=== PATIENT | female | born 1950 | race Caucasian/White ===

== ENCOUNTER → 2016-12-20 | Day surgery (SDC) | payer OTHER ==
[~2016-12-20] MED LIST: BUPIVACAINE HCL PF 0.75% 30 ML VIAL ONE; LACTATED RINGER'S 1000 ML INJ 1,000 ML ONE; LEVA750T9 PO; LIDOCAINE 1.5%/EPINEPHrine 1:200,000 PF SOLN 30 ML AMP ONE; MIDAZOLAM HCL 5 MG/ML VIAL (1 ML) ONE; ONDANSETRON HCL 4 MG/2 ML VIAL IV PUSH ONE; PROPOFOL 200 MG/20 ML AMP IV ONE; SODIUM CHLORIDE 0.9% 100 ML MINIBAG IV ONE; SODIUM CHLORIDE 0.9% 250 ML ADDBAG IV ONE; VANCOMYCIN HCL 1000 MG VIAL ONE; XANAX PO; ceFAZolin INJ 1,000 MG VIAL ONE
--- NOTE | 2016-12-20 23:21 | MP ---
cc: MISAEL BUCKNER MD DATE OF SURGERY 12/20/16 PREOPERATIVE DIAGNOSIS Right distal radius fracture intra-articular three-part POSTOPERATIVE DIAGNOSIS Right distal radius fracture intra-articular three-part SURGEON Kathleen Buckner MD PHARMACY TECHNICIAN JOYCE Veloz The surgical procedure was assisted by my Advanced Registered Nurse Practitioner. My LEAD QUALITY CONTROL TECHNICIAN presence was necessary throughout this case for the manipulation and positioning of the surgical extremity. My LEAD QUALITY CONTROL TECHNICIAN was assisting me throughout the duration of this procedure. The skill set of an Advance Registered Nurse Practitioner was medically necessary to complete this procedure. During the surgical case, the surgical garment assembly supervisor was working at the back table and the Advance Registered Nurse Practitioner was directly assisting me. PROCEDURE Right distal radius fracture open reduction and internal fixation of three-part interarticular fracture. ESTIMATED BLOOD LOSS Minimal ANESTHESIA General anesthesia TOURNIQUET TIME 20 minutes at 250 mmHg pressure. PROCEDURE IN DETAIL The patient received intravenous Ancef and vancomycin. She had regional anesthesia performed in the holding area. She was brought back to the operative theater. General anesthesia was administered. Right upper extremity was prepped and draped in usual sterile fashion. She had several abrasions with no signs of infection. These abrasions were away from the incision site. After standard prepping and draping, we exsanguinated the arm, raised the tourniquet. Volar incision was made over the flexor carpi radialis. We then dissected through to the sub sheath. We reflected the pronator quadratus, identified the fracture which had already starting healing in a displaced angulated position. There was some early granulation tissue. This was resected. We then anatomically reduced the fracture. We started by reducing the ulnar styloid fragment and then later the radial styloid fragment. We applied a Synthes sliding pre-contour locking plate. We slid it to the appropriate position. We then secured the plate with a nonlocking screw and then slid it to the appropriate position on the distal radius. We first secured the distal radius on the ulnar side. We made sure we had no endotracheal penetration. We then further sequentially fixated the fracture with multiple locking screws after anatomically reducing the radial portion as well. The articular surface was anatomic. We verified on fluoroscopy with AP and radial styloid lateral and 10 degrees [id number] used. There was no interarticular penetration. We secured the plate proximally with two locking screws. We took final fluoroscopic imaging. Tourniquet was released. Hemostasis was achieved. The wound was irrigated. We closed the skin with 2-0 Vicryl followed by 3-0 nylon. Postoperative plan is delayed range of motion. She was placed into a volar splint. MD BIBIANA Greenfield/ /4:31 PM /11:10 PM MTDD
== END | disposition home or self-care (01) ==
LOC: ESDC 13:05
PROVIDERS: ATTEND Orthopaedic Surgery
DX: S52.571A Other intraarticular fracture of lower end of right radius, initial encounter for closed fracture (principal)
CPT/HCPCS: 01830; 25609; 73110; 76000; C1713; J0690; J2250; J2405; J3010; J3370; J7120

== ENCOUNTER 2017-09-07 16:33 | Observation (INO) | payer OTHER ==
[~2017-09-07] VITALS: Ht 154.9 cm; Wt 70.0 kg
[~2017-09-07 16:33] MED LIST changes: -BUPIVACAINE HCL PF 0.75% 30 ML VIAL ONE; -LACTATED RINGER'S 1000 ML INJ 1,000 ML ONE; -LIDOCAINE 1.5%/EPINEPHrine 1:200,000 PF SOLN 30 ML AMP ONE; -MIDAZOLAM HCL 5 MG/ML VIAL (1 ML) ONE; -ONDANSETRON HCL 4 MG/2 ML VIAL IV PUSH ONE; -PROPOFOL 200 MG/20 ML AMP IV ONE; -SODIUM CHLORIDE 0.9% 100 ML MINIBAG IV ONE; -SODIUM CHLORIDE 0.9% 250 ML ADDBAG IV ONE; -VANCOMYCIN HCL 1000 MG VIAL ONE; -ceFAZolin INJ 1,000 MG VIAL ONE
[2017-09-07 16:46] VITALS: BP 133/82; PULSE 73; RESP 16; TEMP 98.3; O2SAT 95
[2017-09-07 16:56] VITALS: O2SAT 97
--- NOTE | 2017-09-07 17:11 | PD ---
HPI Chief Complaint: General Weakness Time Seen by Provider: 16:47 Travel History International Travel<30 days: No Contact w/Intl Traveler<30days: No Traveled to known affect area: No History of Present Illness HPI 66 y/o female presents with generalized weakness that led to a fall yesterday. She was feeling better and ambulatory to this morning when she had difficulty walking again. She states she is having significant pain to her right knee since she fell. She states she did hit her head but she did not black out. She denies any other concurrent complaints. Quality is feels like she has no strength. Severity is progressive. She denies specific modifying factors. Duration since yesterday. She presents by ambulance who helps supplement history. Her vitals were stable in route. [facility] Past Medical History Asthma: Yes Cardiac Catheterization: Yes (STATES WAS NEGATIVE-NO INTERVENTIONS NEEDED) Diabetes: No Diminished Hearing: No Menopausal: Yes : 3 Para: 2 : 1 Past Surgical History Appendectomy: Yes Hysterectomy: Yes (PARTIAL) Social History Alcohol Use: Yes (Occasional) Tobacco Use: Yes (ppd) Substance Use: Yes (Occ marijuana) Allergies-Medications (Allergen,Severity, Reaction): Coded Allergies: penicillin G (Unverified Allergy, Unknown, 01/17/17) Reported Meds & Prescriptions Reported Meds & Active Scripts Active Reported Mobic (Meloxicam) 7.5 Mg Tab 7.5 Mg PO BID Propranolol (Propranolol HCl) 20 Mg Tab 20 Mg PO Q8HR Xanax (Alprazolam) 1 Mg Tab 1 Mg PO DAILY PRN Review of Systems Except as stated in HPI: all other systems reviewed are Neg Physical Exam Narrative GENERAL: 66-year-old female in no apparent distress SKIN: Focused skin assessment warm/dry. HEAD: Atraumatic. Normocephalic. EYES: Pupils equal and round. No scleral icterus. No injection or drainage. ENT: No nasal bleeding or discharge. Mucous membranes pink and moist. NECK: Trachea midline. CARDIOVASCULAR: Regular rate and rhythm. RESPIRATORY: No accessory muscle use. Clear to auscultation. Breath sounds equal bilaterally. GASTROINTESTINAL: Abdomen soft, non-tender, nondistended. MUSCULOSKELETAL: No obvious deformities. No clubbing. No cyanosis. No edema. Pain with palpation of right knee, no pain with other joints , neurovascularly intact, no lacerations over, compartments soft. NEUROLOGICAL: Awake and alert. No obvious cranial nerve deficits. Motor grossly within normal limits. Normal speech. Data Data Last Documented VS Vital Signs Date Time Temp Pulse Resp B/P (MAP) Pulse Ox O2 Delivery O2 Flow Rate FiO2 09/07/17 16:56 97 Room Air 09/07/17 16:46 98.3 73 16 133/82 (99) Orders Orders Magnesium (Mg) (09/07/17 16:47) Phosphorus (Po4) (09/07/17 16:47) Complete Blood Count With Diff (09/07/17 16:47) Comprehensive Metabolic Panel (09/07/17 16:47) Creatine Kinase (Cpk) (09/07/17 16:47) Urinalysis - C+S If Indicated (09/07/17 16:47) Act Partial Throm Time (Ptt) (09/07/17 16:47) Prothrombin Time / Inr (Pt) (09/07/17 16:47) Ct Brain W/O Iv Contrast(Rout) (09/07/17 ) Chest, Single Ap (09/07/17 ) Electrocardiogram (09/07/17 ) Iv Access Insert/Monitor (09/07/17 16:47) Ecg Monitoring (09/07/17 16:47) Oximetry (09/07/17 16:47) Knee, Complete (4vws) (09/07/17 ) ^ Knee Immobilizer (09/07/17 17:35) Morphine Inj (Morphine Inj) (09/07/17 18:00) Ondansetron Inj (Zofran Inj) (09/07/17 18:00) Place In Observation (09/07/17 ) Vital Signs (Adult) Q4H (09/07/17 18:24) Activity Oob With Assistance (09/07/17 18:24) Manager Policy / Telemetry .CONTINUOUS (09/07/17 18:24) Diet Heart Healthy (09/07/17 Dinner) Sodium Chloride 0.9% Flush (Ns Flush) (09/07/17 18:30) Sodium Chloride 0.9% Flush (Ns Flush) (09/07/17 21:00) Pt Request For Service (09/07/17 18:24) Case Management Consult (09/07/17 18:24) Naloxone Inj (Narcan Inj) (09/07/17 18:30) Morphine Inj (Morphine Inj) (09/07/17 18:30) Admit Order (Ed Use Only) (09/07/17 18:34) Labs Laboratory Tests Test 09/07/17 16:50 09/07/17 17:40 White Blood Count 10.2 TH/MM3 Red Blood Count 4.62 MIL/MM3 Hemoglobin 15.0 GM/DL Hematocrit 43.1 % Mean Corpuscular Volume 93.2 FL Mean Corpuscular Hemoglobin 32.4 PG Mean Corpuscular Hemoglobin Concent 34.7 % Red Cell Distribution Width 14.8 % Platelet Count 359 TH/MM3 Mean Platelet Volume 7.3 FL Neutrophils (%) (Auto) 73.8 % Lymphocytes (%) (Auto) 17.4 % Monocytes (%) (Auto) 7.1 % Eosinophils (%) (Auto) 1.5 % Basophils (%) (Auto) 0.2 % Neutrophils # (Auto) 7.5 TH/MM3 Lymphocytes # (Auto) 1.8 TH/MM3 Monocytes # (Auto) 0.7 TH/MM3 Eosinophils # (Auto) 0.2 TH/MM3 Basophils # (Auto) 0.0 TH/MM3 CBC Comment DIFF FINAL Differential Comment Prothrombin Time 9.9 SEC Prothromb Time International Ratio 1.0 RATIO Activated Partial Thromboplast Time 26.2 SEC Blood Urea Nitrogen 16 MG/DL Creatinine 0.67 MG/DL Random Glucose 80 MG/DL Total Protein 7.1 GM/DL Albumin 3.7 GM/DL Calcium Level 9.1 MG/DL Phosphorus Level 3.4 MG/DL Magnesium Level 2.1 MG/DL Alkaline Phosphatase 59 U/L Aspartate Amino Transf (AST/SGOT) 17 U/L Alanine Aminotransferase (ALT/SGPT) 18 U/L Total Bilirubin 0.5 MG/DL Sodium Level 139 MEQ/L Potassium Level 3.9 MEQ/L Chloride Level 105 MEQ/L Carbon Dioxide Level 26.2 MEQ/L Anion Gap 8 MEQ/L Estimat Glomerular Filtration Rate 88 ML/MIN Total Creatine Kinase 50 U/L Urine Color YELLOW Urine Turbidity CLEAR Urine pH 6.0 Urine Specific [place] 1.012 Urine Protein NEG mg/dL Urine Glucose (UA) NEG mg/dL Urine Ketones NEG mg/dL Urine Occult Blood NEG Urine Nitrite NEG Urine Bilirubin NEG Urine Urobilinogen LESS THAN 2.0 MG/DL Urine Leukocyte Esterase NEG Urine RBC 1 /hpf Urine WBC 1 /hpf Urine Squamous Epithelial Cells 2 /hpf Microscopic Urinalysis Comment CULT NOT INDICATED MDM Medical Decision Making Medical Screen Exam Complete: Yes Emergency Medical Condition: Yes Medical Record Reviewed: Yes (Past history confirmed) Interpretation(s) CBC & BMP Diagram 09/07/17 16:50 Total Protein 7.1, Albumin 3.7, Calcium Level 9.1, Phosphorus Level 3.4, Magnesium Level 2.1, Alkaline Phosphatase 59, Aspartate Amino Transf (AST/SGOT) 17, Alanine Aminotransferase (ALT/SGPT) 18, Total Bilirubin 0.5 Last 24 hours Impressions Knee X-Ray 09/07/17 0000 Signed Impressions: Service Date/Time: September 17:01 - CONCLUSION: Mildly comminuted fracture of the patella. Del Martinez MD Head CT 09/07/17 0000 Signed Impressions: Service Date/Time: September 17:50 - CONCLUSION: 1. Diffuse decreased attenuation in the supratentorial white matter suggesting ischemic demyelination. 2. No evidence of mass effect, edema, or acute hemorrhage. Del Martinez MD Chest X-Ray 09/07/17 0000 Signed Impressions: Service Date/Time: September 16:59 - CONCLUSION: Small focal opacity in the right midlung. Recommend followup scans. Del Martinez MD Differential Diagnosis Fracture, anemia, UTI, strain, bleed Narrative Course We will check blood work, urinalysis, imaging and reevaluate Patient with right patella fracture. Patient given morphine and knee immobilizer placed. Patient still having difficulty ambulating. Lives at home by herself. Agrees to observation overnight to help coordinate care and control pain Physician Communication Physician Communication dr nagel states can follow outpatient dr dye agrees to admit Diagnosis Primary Impression: Patellar fracture Qualified Codes: S82.001A - Unspecified fracture of right patella, initial encounter for closed fracture Additional Impression: Weakness generalized Admitting Information Admitting Physician Requests: Observation Keli James MD Sep 07, 2017 17:11
--- NOTE | 2017-09-07 17:17 | RADRPT ---
EXAM DATE/TIME: 09/07/2017 16:59 [facility] COMPARISON: No previous studies available for comparison. INDICATIONS : Pain post fall. MEDICAL HISTORY : None. SURGICAL HISTORY : None. ENCOUNTER: Initial ACUITY: 1 day PAIN SCORE: 10/10 LOCATION: Bilateral chest FINDINGS: There is a focal ill-defined opacity in the right midlung which measures 1.3 cm. This is located adj acent to the anterior right 4th rib. The remainder of the lungs are clear. Both hemidiaphragms are well delineated. No evidence of pneumothorax. CONCLUSION: Small focal opacity in the right midlung. Recommend followup scans. Del Martinez MD on September 07, 2017 at 17:13 Board Certified Radiologist. This report was verified electronically.
--- NOTE | 2017-09-07 17:28 | RADRPT ---
EXAM DATE/TIME: 09/07/2017 17:01 [facility] COMPARISON: No previous studies available for comparison. INDICATIONS : Pain post fall. MEDICAL HISTORY : None. SURGICAL HISTORY : None. ENCOUNTER: Initial ACUITY: 1 day PAIN SCORE: 10/10 LOCATION: Right Knee. FINDINGS: There is a mildly comminuted fracture of the patella without significant displacement of the fracture fragments. The distal femur and proximal tibia are intact. There is mild distention of the suprapa tellar soft tissues. Vascular calcification in the posterior thigh. CONCLUSION: Mildly comminuted fracture of the patella. Del Martinez MD on September 07, 2017 at 17:25 Board Certified Radiologist. This report was verified electronically.
[2017-09-07 17:32] LABS: AUTOMATED NEUTROPHIL # 7.5 TH/MM3 (1.8-7.7); BASOPHIL % 0.2 % (0.0-2.0); EOSINOPHIL # 0.2 TH/MM3 (0-0.4); EOSINOPHIL % 1.5 % (0.0-4.0); HEMATOCRIT 43.1 % (35.0-46.0); LYMPH % 17.4 % (9.0-44.0); LYMPHOCYTE # 1.8 TH/MM3 (1.0-4.8); MEAN CELL VOLUME 93.2 FL (80.0-100.0); MEAN CORPUSCULAR HEMOGLOBIN 32.4 PG (27.0-34.0); MEAN CORPUSCULAR HGB CONC 34.7 % (32.0-36.0); MEAN PLATELET VOLUME 7.3 FL (7.0-11.0); MONO % 7.1 % (0.0-8.0); MONOCYTE # 0.7 TH/MM3 (0-0.9); NEUT % 73.8 % (16.0-70.0); PLATELET COUNT 359 TH/MM3 (150-450); RED BLOOD COUNT 4.62 MIL/MM3 (4.00-5.30); RED CELL DISTRIBUTION WIDTH 14.8 % (11.6-17.2); WHITE BLOOD COUNT 10.2 TH/MM3 (4.0-11.0)
[2017-09-07 17:43] LABS: PROTHROMBIN TIME - PATIENT 9.9 SEC (9.8-11.6)
[2017-09-07 17:54] LABS: ALBUMIN 3.7 GM/DL (3.4-5.0); ALT (GPT) 18 U/L (10-53); AST (GOT) 17 U/L (15-37); BICARBONATE 26.2 MEQ/L (21.0-32.0); BLOOD UREA NITROGEN 16 MG/DL (7-18); CALCIUM 9.1 MG/DL (8.5-10.1); CHLORIDE 105 MEQ/L (98-107); CREATININE 0.67 MG/DL (0.50-1.00); GLOMERULAR FILTRATION RATE 88 ML/MIN (>89); GLUCOSE,RANDOM 80 MG/DL (74-106); MAGNESIUM 2.1 MG/DL (1.5-2.5); PHOSPHORUS 3.4 MG/DL (2.5-4.9); SODIUM (NA) 139 MEQ/L (136-145)
[2017-09-07 17:57] LABS: ALKALINE PHOSPHATASE 59 U/L (45-117); TOTAL BILIRUBIN ADULT 0.5 MG/DL (0.2-1.0); TOTAL PROTEIN 7.1 GM/DL (6.4-8.2)
[2017-09-07] MEDS ORDERED: ONDANSETRON HCL 4 MG/2 ML VIAL IV PUSH ONE (18:00)
[2017-09-07] MEDS ORDERED: MORPHINE SULFATE 4 MG/ML INJ IV PUSH ONE (18:00)
--- NOTE | 2017-09-07 18:05 | RADRPT ---
EXAM DATE/TIME: 09/07/2017 17:50 [facility] COMPARISON: No previous studies available for comparison. INDICATIONS : Patient complains of weakness,unsteady gait. RADIATION DOSE: 56.35 CTDIvol (mGy) MEDICAL HISTORY : None SURGICAL HISTORY : Appendectomy. Hysterectomy. ENCOUNTER: Initial ACUITY: 1 day PAIN SCALE: 0/10 LOCATION: cranial TECHNIQUE: Multiple contiguous axial images were obtained of the head. Using automated exposure control and adj ustment of the mA and/or kV according to patient size, radiation dose was kept as low as reasonably a chievable to obtain optimal diagnostic quality images. DICOM format image data is available electro nically for review and comparison. FINDINGS: CEREBRUM: The ventricles are mildly prominent. There is scattered areas of decreased attenuation in the suprat entorial white matter, symmetric between left and right side suggesting ischemic demyelination. No e vidence of midline shift, mass lesion, hemorrhage or acute infarction. No extra-axial fluid collecti ons are seen. POSTERIOR FOSSA: The cerebellum and brainstem are intact. The 4th ventricle is midline. The cerebellopontine angle i s unremarkable. EXTRACRANIAL: The visualized portion of the orbits is intact. SKULL: The calvaria is intact. No evidence of skull fracture. CONCLUSION: 1. Diffuse decreased attenuation in the supratentorial white matter suggesting ischemic demyelination . 2. No evidence of mass effect, edema, or acute hemorrhage. Del Martinez MD on September 07, 2017 at 18:02 Board Certified Radiologist. This report was verified electronically.
[2017-09-07] MEDS ORDERED: SODIUM CHLORIDE 0.9% FLUSH 10 ML FLUSH IV FLUSH PRN (18:30)
[2017-09-07] MEDS ORDERED: NALOXONE HCL 0.4 MG/ML AMP IV PUSH PRN (18:30)
[2017-09-07 18:32] LABS: BILIRUBIN, URINE NEG (NEG); BLOOD, URINE NEG (NEG); GLUCOSE,URINE NEG (NEG); KETONE, URINE NEG (NEG); NITRITE,URINE NEG (NEG); SQUAMOUS EPITHELIAL CELL URINE 2 /hpf (0-5); URINE COLOR YELLOW (YELLW/STRAW); URINE LEUKOCYTE ESTERASE NEG (NEG)
[2017-09-07] MEDS ORDERED: PROP20TA3 PO (18:32)
[2017-09-07] MEDS ORDERED: MOBI7.5T PO (18:32)
[2017-09-07] MEDS ORDERED: XANA1TAB2 PO (18:32)
[2017-09-07] MEDS: SODIUM CHLORIDE 0.9% FLUSH 10 ML FLUSH IV FLUSH SCH (21:00)
[2017-09-07 21:27] VITALS: BP 135/63; PULSE 74; RESP 17; TEMP 98.3; O2SAT 94
[2017-09-08] VITALS (9 sets, daily range): BP systolic 107–127; BP diastolic 52–67; PULSE 67–96; RESP 16–20; TEMP 97.6–98.8; O2SAT 93–97
--- NOTE | 2017-09-08 02:16 | HHI.HP ---
HPI Service [facility] Primary Care Physician Unknown Admission Diagnosis fall, weakness, patellar fracture Diagnoses: Travel History International Travel<30 Days: No Contact w/Intl Traveler <30 Da: No Traveled to Known Affected Are: No History of Present Illness 66-year-old female with a past medical history significant for osteoporosis, hyperlipidemia, hypertension and anxiety presents the emergency department for the evaluation of a fall. The patient reports she was walking when her legs gave out and she fell to the ground hitting her right knee. She states she fell onto bilateral outstretched hands and complains of left-sided shoulder pain in addition to her right knee pain. Patient reports her pain is severe, 10 /10. She denies any loss of consciousness associated with the event. Denies any head trauma. Denies chest pain or shortness of breath. No dizziness or fatigue. No abdominal pain. No nausea/vomiting/diarrhea. No lateralizing signs/symptoms. Review of Systems Except as stated in HPI: all other systems reviewed are Neg Past Family Social History Past Medical History Osteoporosis Hypertension Hyperlipidemia Anxiety Past Surgical History Right arm surgery Hysterectomy Appendectomy Cardiac catheterization - negative Reported Medications Reported Meds & Active Scripts Active Reported Mobic (Meloxicam) 7.5 Mg Tab 7.5 Mg PO BID Propranolol (Propranolol HCl) 20 Mg Tab 20 Mg PO Q8HR Xanax (Alprazolam) 1 Mg Tab 1 Mg PO DAILY PRN Allergies: Coded Allergies: penicillin G (Unverified Allergy, Unknown, 01/17/17) Family History Father with diabetes mellitus and coronary artery disease. Social History Smokes approximately 6 cigarettes per day. Occasional alcohol. Positive marijuana. Denies all other illicit drugs. Physical Exam Vital Signs Vital Signs Date Time Temp Pulse Resp B/P (MAP) Pulse Ox O2 Delivery O2 Flow Rate FiO2 09/08/17 00:53 98.4 73 17 110/67 (81) 96 09/07/17 21:27 98.3 74 17 135/63 (87) 94 09/07/17 16:56 97 Room Air 09/07/17 16:54 96 Room Air 09/07/17 16:46 98.3 73 16 133/82 (99) 95 Physical Exam GENERAL: female lying in bed SKIN: No rashes, ecchymoses or lesions. Cool and dry. HEAD: Atraumatic. Normocephalic. No temporal or scalp tenderness. EYES: Pupils equal round and reactive. Extraocular motions intact. No scleral icterus. No injection or drainage. ENT: Nose without bleeding, purulent drainage or septal hematoma. Throat without erythema, tonsillar hypertrophy or exudate. Uvula midline. Airway patent. NECK: Trachea midline. No JVD or lymphadenopathy. Supple, nontender, no meningeal signs. CARDIOVASCULAR: Regular rate and rhythm without murmurs, gallops, or rubs. RESPIRATORY: Clear to auscultation. Breath sounds equal bilaterally. No wheezes , rales, or rhonchi. GASTROINTESTINAL: Abdomen soft, non-tender, nondistended. No hepato-splenomegaly , or palpable masses. No guarding. MUSCULOSKELETAL: Extremities without clubbing, cyanosis, or edema. Right lower extremity in brace. Neurovascularly intact. NEUROLOGICAL: Awake and alert. Cranial nerves II through XII intact. Motor and sensory grossly within normal limits. Normal speech. Laboratory Laboratory Tests Test 09/07/17 16:50 09/07/17 17:40 White Blood Count 10.2 Red Blood Count 4.62 Hemoglobin 15.0 Hematocrit 43.1 Mean Corpuscular Volume 93.2 Mean Corpuscular Hemoglobin 32.4 Mean Corpuscular Hemoglobin Concent 34.7 Red Cell Distribution Width 14.8 Platelet Count 359 Mean Platelet Volume 7.3 Neutrophils (%) (Auto) 73.8 Lymphocytes (%) (Auto) 17.4 Monocytes (%) (Auto) 7.1 Eosinophils (%) (Auto) 1.5 Basophils (%) (Auto) 0.2 Neutrophils # (Auto) 7.5 Lymphocytes # (Auto) 1.8 Monocytes # (Auto) 0.7 Eosinophils # (Auto) 0.2 Basophils # (Auto) 0.0 CBC Comment DIFF FINAL Differential Comment Prothrombin Time 9.9 Prothromb Time International Ratio 1.0 Activated Partial Thromboplast Time 26.2 Blood Urea Nitrogen 16 Creatinine 0.67 Random Glucose 80 Total Protein 7.1 Albumin 3.7 Calcium Level 9.1 Phosphorus Level 3.4 Magnesium Level 2.1 Alkaline Phosphatase 59 Aspartate Amino Transf (AST/SGOT) 17 Alanine Aminotransferase (ALT/SGPT) 18 Total Bilirubin 0.5 Sodium Level 139 Potassium Level 3.9 Chloride Level 105 Carbon Dioxide Level 26.2 Anion Gap 8 Estimat Glomerular Filtration Rate 88 Total Creatine Kinase 50 Urine Color YELLOW Urine Turbidity CLEAR Urine pH 6.0 Urine Specific [place] 1.012 Urine Protein NEG Urine Glucose (UA) NEG Urine Ketones NEG Urine Occult Blood NEG Urine Nitrite NEG Urine Bilirubin NEG Urine Urobilinogen LESS THAN 2.0 Urine Leukocyte Esterase NEG Urine RBC 1 Urine WBC 1 Urine Squamous Epithelial Cells 2 Microscopic Urinalysis Comment CULT NOT INDICATED Result Diagram: 09/07/17164909/07/171649 Caprini VTE Risk Assessment Caprini VTE Risk Assessment: Mod/High Risk (score >= 2) Caprini Risk Assessment Model Point Value = 1 Point Value = 2 Point Value = 3 Point Value = 5 Age 41-60 Minor surgery BMI > 25 kg/m2 Swollen legs Varicose veins or History of unexplained or recurrent spontaneous Oral contraceptives or hormone replacement Sepsis (< 1 month) Serious lung disease, including pneumonia (< 1 month) Abnormal pulmonary function Acute myocardial infarction Congestive heart failure (< 1 month) History of inflammatory bowel disease Medical patient at bed rest Age 61-74 Arthroscopic surgery Major open surgery (> 45 min) Laparoscopic surgery (> 45 min) Malignancy Confined to bed (> 72 hours) Immobilizing plaster cast Central venous access Age >= 75 History of VTE Family history of VTE Factor V Leiden Prothrombin [id number] Lupus anticoagulant Anticardiolipin antibodies Elevated serum homocysteine Heparin-induced thrombocytopenia Other congenital or acquired thrombophilia Stroke (< 1 month) Elective arthroplasty Hip, pelvis, or leg fracture Acute spinal cord injury (< 1 month) Prophylaxis Regimen Total Risk Factor Score Risk Level Prophylaxis Regimen 0-1 Low Early ambulation 2 Moderate Order ONE of the following: *Sequential Compression Device (SCD) *Heparin 5000 units SQ BID 3-4 Higher Order ONE of the following medications: *Heparin 5000 units SQ TID *Enoxaparin/Lovenox 40 mg SQ daily (WT < 150 kg, CrCl > 30 mL/min) *Enoxaparin/Lovenox 30 mg SQ daily (WT < 150 kg, CrCl > 10-29 mL/min) *Enoxaparin/Lovenox 30 mg SQ BID (WT < 150 kg, CrCl > 30 mL/min) AND/OR *Sequential Compression Device (SCD) 5 or more Highest Order ONE of the following medications: *Heparin 5000 units SQ TID (Preferred with Epidurals) *Enoxaparin/Lovenox 40 mg SQ daily (WT < 150 kg, CrCl > 30 mL/min) *Enoxaparin/Lovenox 30 mg SQ daily (WT < 150 kg, CrCl > 10-29 mL/min) *Enoxaparin/Lovenox 30 mg SQ BID (WT < 150 kg, CrCl > 30 mL/min) AND *Sequential Compression Device (SCD) Assessment and Plan Assessment and Plan Assessment/plan: 1. Patellar fracture X-ray of the right knee shows mildly comminuted fracture of the patella Nonsurgical Continue right lower extremity brace Follow-up with orthopedic surgery as an outpatient Physical therapy consulted, appreciate assistance as patient lives alone Morphine for pain 2. Hypertension Continue home propanolol 3. Hyperlipidemia Patient not on a statin 4. Anxiety Continue on Xanax FEN Heart healthy diet Electrolytes: Monitor and replete when necessary Heparin Nicole Henderson MD Sep 08, 2017 02:16
--- NOTE | 2017-09-08 05:42 | EKG ---
Date Performed: 09/07/2017 Time Performed: 16:53:21 PTAGE: 66 years EKG: Sinus rhythm NORMAL ECG PREVIOUS TRACING : 07/19/2010 14.25 Compared to previous tracing, sinus rhythm has replaced ect opic atrial rhythm. DOCTOR: Jakub Field Interpretating Date/Time 09/08/2017 05:40:59
[2017-09-08] MEDS: PROPRANOLOL HCL 20 MG TAB PO SCH ×3 (06:20→22:50)
[2017-09-08] MEDS: MORPHINE SULFATE 2 MG/ML SYRINGE IV PUSH PRN ×5 (07:02→20:38)
[2017-09-08] MEDS: MELOXICAM 7.5 MG TAB PO SCH ×2 (09:44→20:37)
[2017-09-08] MEDS: HEPARIN SODIUM - SQ 10,000 UNITS/ML VIAL SQ SCH ×2 (09:44→20:37)
[2017-09-08] MEDS: SODIUM CHLORIDE 0.9% FLUSH 10 ML FLUSH IV FLUSH SCH ×2 (09:46→20:37)
--- NOTE | 2017-09-08 20:03 | RADRPT ---
EXAM DATE/TIME: 09/08/2017 19:18 [facility] COMPARISON: No previous studies available for comparison. INDICATIONS : Patient fell on Monday causing left shoulder pain. MEDICAL HISTORY : None. SURGICAL HISTORY : None. ENCOUNTER: Initial ACUITY: 3 days PAIN SCORE: 4/10 LOCATION: Left Shoulder. FINDINGS: Multiple view examination of the left shoulder demonstrates no evidence of fracture or dislocation. The glenohumeral and acromioclavicular joints are maintained. There is normal range of motion betwee n internal and external rotation. Bony mineralization is normal. CONCLUSION: Negative for fracture or dislocation. Follow up in 7-10 days is suggested if symptoms persist. Bari Vegas MD FACR on September 08, 2017 at 20:00 Board Certified Radiologist. This report was verified electronically.
[2017-09-08] MEDS: ALPRAZolam 1 MG TAB PO PRN (20:37)
[2017-09-09] MEDS: MORPHINE SULFATE 2 MG/ML SYRINGE IV PUSH PRN (04:10)
[2017-09-09] MEDS: PROPRANOLOL HCL 20 MG TAB PO SCH (06:27)
[2017-09-09 08:00] VITALS: BP 144/59; PULSE 65; RESP 18; TEMP 98.1; O2SAT 95
[2017-09-09] MEDS: HEPARIN SODIUM - SQ 10,000 UNITS/ML VIAL SQ SCH (09:09)
[2017-09-09] MEDS: SODIUM CHLORIDE 0.9% FLUSH 10 ML FLUSH IV FLUSH SCH (09:09)
[2017-09-09] MEDS: MELOXICAM 7.5 MG TAB PO SCH (09:09)
[2017-09-09] MEDS: ALPRAZolam 1 MG TAB PO PRN (09:09)
[2017-09-09] MEDS ORDERED: WHEEMIS3 (09:17)
[2017-09-09] MEDS ORDERED: NORC5TAB PO (10:46)
--- NOTE | 2017-09-09 10:46 | HHI.PR ---
Subjective Remarks Follow-up visit right patellar fracture. Patient seen and examined today. Reports she is doing well. Pain is minimal especially when resting. She only has pain when she is moving around but states she is able to ambulate with a walker. Patient demonstrated ambulation with a walker. Brace in place. Otherwise, denies SOB/ dyspnea. Denies chest pain, palpitations, headaches, dizziness. Denies fevers, chills, n/v/d. Denies dysuria. Objective Vitals Vital Signs Date Time Temp Pulse Resp B/P (MAP) Pulse Ox O2 Delivery O2 Flow Rate FiO2 09/09/17 08:00 98.1 65 18 144/59 (87) 95 09/09/17 04:15 16 09/08/17 23:26 97.7 81 16 117/58 (77) 97 09/08/17 20:44 97.6 88 20 122/59 (80) 93 09/08/17 20:05 96 09/08/17 16:38 98.7 70 18 127/66 (86) 93 09/08/17 15:04 83 09/08/17 13:00 98.0 77 18 107/53 (71) 94 I/O 09/08/17 09/08/17 09/08/17 09/09/17 09/09/17 09/09/17 07:00 15:00 23:00 07:00 15:00 23:00 Intake Total 480 ml 300 ml Output Total 550 ml Balance 480 ml -250 ml Intake Oral 480 ml IV Total 300 ml Output Urine Total 550 ml Result Diagram: 09/07/17 1650 09/07/17 1650 Imaging Last Impressions Shoulder X-Ray 09/08/17 0000 Signed Impressions: Service Date/Time: Friday, September 08, 2017 19:18 - CONCLUSION: Negative for fracture or dislocation. Follow up in 7-10 days is suggested if symptoms persist. Bari Vegas MD FACR Knee X-Ray 09/07/17 0000 Signed Impressions: Service Date/Time: September 17:01 - CONCLUSION: Mildly comminuted fracture of the patella. Del Martinez MD Head CT 09/07/17 0000 Signed Impressions: Service Date/Time: September 17:50 - CONCLUSION: 1. Diffuse decreased attenuation in the supratentorial white matter suggesting ischemic demyelination. 2. No evidence of mass effect, edema, or acute hemorrhage. Del Martinez MD Chest X-Ray 09/07/17 0000 Signed Impressions: Service Date/Time: September 16:59 - CONCLUSION: Small focal opacity in the right midlung. Recommend followup scans. Del Martinez MD Objective Remarks GENERAL: This is a well-nourished, well-developed patient, in no apparent distress. SKIN: Warm and dry. HEENT: Normocephalic. Pupils equal round and reactive. Nose without bleeding. Airway patent. NECK: Trachea midline. No JVD. Supple. CARDIOVASCULAR: Regular rate and rhythm without murmurs, gallops, or rubs. RESPIRATORY: Clear to auscultation. Breath sounds equal bilaterally. No wheezes , rales, or rhonchi. GASTROINTESTINAL: Abdomen soft, non-tender, nondistended. Bowel Sounds normoactive x4. MUSCULOSKELETAL: Extremities without clubbing, cyanosis. Right knee with trace edema, brace in place NEUROLOGICAL: Awake and alert. Oriented to time, place, person. No focal neuro deficit. Moves all extremities. Normal speech. Procedures None A/P Problem List: (1) Patellar fracture ICD Code: S82.009A - Unspecified fracture of unspecified patella, initial encounter for closed fracture Status: Acute (2) Weakness generalized ICD Code: R53.1 - Weakness Status: Acute Assessment and Plan 66-year-old female with a past medical history significant for osteoporosis, hyperlipidemia, hypertension and anxiety presents the emergency department for the evaluation of a fall. Right patellar fracture Generalized weakness, multiple falls prior X-ray of the right knee shows mildly comminuted fracture of the patella Nonsurgical Continue right lower extremity brace Follow-up with orthopedic surgery as an outpatient Physical therapy consulted, appreciate assistance, recommends home health care PT Recommend to see an neurologist for workup as patient has family history of Parkinson's disease Hypertension HLD Continue home propanolol Follow-up with primary care for lipid profile Anxiety Continue on Xanax DVT Heparin Discharge Planning Plan to discharge home today with wheelchair, home health care physical therapy Problem Qualifiers (1) Patellar fracture: Qualified Codes: S82.001A - Unspecified fracture of right patella, initial encounter for closed fracture Yeison BurrowsP Sep 09, 2017 10:46
--- NOTE | 2017-09-09 10:47 | HHI.DCPOC ---
Discharge Care Plan Diagnosis: (1) Patellar fracture (2) Weakness generalized Your Health Problems Are: Difficulty with ADL Inflammation Swelling Goals to Promote Your Health * To prevent worsening of your condition and complications * To maintain your health at the optimal level Directions to Meet Your Goals Take your medications as prescribed Follow your dietary instruction Follow activity as directed Keep your appointments as scheduled Take your immunizations and boosters as scheduled If your symptoms worsen call your PCP, if no PCP go to Urgent Care Center or Emergency Room Smoking is Dangerous to Your Health. Avoid second hand smoke Call the 24-hour hour crisis hotline for domestic abuse at Yeison Burrows [facility] Sep 09, 2017 10:47
--- NOTE | 2017-09-09 10:48 | HHI.FF ---
Face to Face Verification Diagnosis: (1) Patellar fracture (2) Weakness generalized Physical Therapy Order: Evaluate and Treat Home Health Nursing Order: Signs/symptoms of disease process Nursing assessment with vital signs I have seen patient Ashlie Brewer on 09/09/17. My clinical findings support the need for the requested home health care services because: Ltd mobility - disease progression Deconditioned w/ increased weakness I certify that my clinical findings support that this patient is homebound because: Unsteady gait/balance Yeison Burrows [facility] Sep 09, 2017 10:48
--- NOTE | 2017-09-09 11:04 | HHI.DS ---
Discharge Summary Admission Date Sep 07, 2017 at 18:35 Discharge Date: Sep 09, 2017 Admitting Diagnosis fall, weakness, patellar fracture (1) Patellar fracture ICD Code: S82.009A - Unspecified fracture of unspecified patella, initial encounter for closed fracture Status: Acute (2) Weakness generalized ICD Code: R53.1 - Weakness Status: Acute Procedures None Brief History - From Admission 66-year-old female with a past medical history significant for osteoporosis, hyperlipidemia, hypertension and anxiety presents the emergency department for the evaluation of a fall. The patient reports she was walking when her legs gave out and she fell to the ground hitting her right knee. She states she fell onto bilateral outstretched hands and complains of left-sided shoulder pain in addition to her right knee pain. Patient reports her pain is severe, 10 /10. She denies any loss of consciousness associated with the event. Denies any head trauma. Denies chest pain or shortness of breath. No dizziness or fatigue. No abdominal pain. No nausea/vomiting/diarrhea. No lateralizing signs/symptoms. CBC/BMP: 09/07/17 1650 09/07/17 1650 Significant Findings Laboratory Tests Test 09/07/17 16:50 09/07/17 17:40 Neutrophils (%) (Auto) 73.8 % (16.0-70.0) Estimat Glomerular Filtration Rate 88 ML/MIN (>89) Imaging Last Impressions Shoulder X-Ray 09/08/17 0000 Signed Impressions: Service Date/Time: Friday, September 08, 2017 19:18 - CONCLUSION: Negative for fracture or dislocation. Follow up in 7-10 days is suggested if symptoms persist. Bari Vegas MD FACR Knee X-Ray 09/07/17 0000 Signed Impressions: Service Date/Time: September 17:01 - CONCLUSION: Mildly comminuted fracture of the patella. Del Martinez MD Head CT 09/07/17 0000 Signed Impressions: Service Date/Time: September 17:50 - CONCLUSION: 1. Diffuse decreased attenuation in the supratentorial white matter suggesting ischemic demyelination. 2. No evidence of mass effect, edema, or acute hemorrhage. Del Martinez MD Chest X-Ray 09/07/17 0000 Signed Impressions: Service Date/Time: September 16:59 - CONCLUSION: Small focal opacity in the right midlung. Recommend followup scans. Del Martinez MD PE at Discharge GENERAL: This is a well-nourished, well-developed patient, in no apparent distress. SKIN: Warm and dry. HEENT: Normocephalic. Pupils equal round and reactive. Nose without bleeding. Airway patent. NECK: Trachea midline. No JVD. Supple. CARDIOVASCULAR: Regular rate and rhythm without murmurs, gallops, or rubs. RESPIRATORY: Clear to auscultation. Breath sounds equal bilaterally. No wheezes , rales, or rhonchi. GASTROINTESTINAL: Abdomen soft, non-tender, nondistended. Bowel Sounds normoactive x4. MUSCULOSKELETAL: Extremities without clubbing, cyanosis. Right knee with trace edema, brace in place NEUROLOGICAL: Awake and alert. Oriented to time, place, person. No focal neuro deficit. Moves all extremities. Normal speech. Pt update on day of discharge Follow-up visit right patellar fracture. Patient seen and examined today. Reports she is doing well. Pain is minimal especially when resting. She only has pain when she is moving around but states she is able to ambulate with a walker. Patient demonstrated ambulation with a walker. Brace in place. Otherwise, denies SOB/ dyspnea. Denies chest pain, palpitations, headaches, dizziness. Denies fevers, chills, n/v/d. Denies dysuria. Hospital Course 66-year-old female with a past medical history significant for osteoporosis, hyperlipidemia, hypertension and anxiety presents the emergency department for the evaluation of a fall. On x-ray patient was found to have a right knee mildly comminuted fracture of the patella. Orthopedic surgeon consulted, recommends nonsurgical treatment. Physical therapy evaluated and treated patient and recommends home health physical therapy. Patient is clinically improved. Able to ambulate with use of walker. Will order wheelchair for long distance. She will need to follow-up with orthopedic doctors and her primary care doctor. Discussed and explained with patient. Patient has met maximal benefits of hospitalization. Clinically stable for discharge. Pt Condition on Discharge: Stable Discharge Disposition: Disch w/ Home Health Serv Discharge Time: > 30 minutes Discharge Instructions DIET: Follow Instructions for: Heart Healthy Diet Activities you can perform: Weight Bearing as Lynette Activities to Avoid: Driving for 24 hrs Follow up Referrals: Orthopedics - 1 Week PCP Follow-up - 2-3 Days New Medications: Hydrocodone-Acetaminophen ([place]) 5 Mg-325 Mg Tab 1 TAB PO Q4H PRN for PAIN, #12 TAB 0 Refills Wheelchair (Wheelchair) 1 Mis Mis EA .XX DIRECTED, #1 0 Refills Continued Medications: Alprazolam (Xanax) 1 Mg Tab 1 MG PO DAILY PRN for ANXIETY, TAB 0 Refills Meloxicam (Mobic) 7.5 Mg Tab 7.5 MG PO BID for Pain, TAB 0 Refills Propranolol (Propranolol) 20 Mg Tab 20 MG PO Q8HR, #90 TAB 0 Refills Yeison uBrrows Sep 09, 2017 11:04
[2017-09-09 12:00] VITALS: BP 105/55; PULSE 77; RESP 18; TEMP 97.7; O2SAT 93
[2017-09-09] MEDS ORDERED: ACETAMINOPHEN/HYDROcodone 325 MG/5 MG TAB PO PRN (12:15)
--- NOTE | 2017-09-09 15:54 | PD.ORT.PN ---
Subjective Subjective Remarks Patient is up in room ambulating without her walker and wearing her knee immobilizer. Patient states her knee pain and left shoulder pain are improving. Patient states that she still has some weakness to the LUE and has to assist the arm overhead. Objective Vitals Vital Signs Date Time Temp Pulse Resp B/P (MAP) Pulse Ox O2 Delivery O2 Flow Rate FiO2 09/09/17 12:00 97.7 77 18 105/55 (72) 93 09/09/17 08:00 98.1 65 18 144/59 (87) 95 09/09/17 04:15 16 09/08/17 23:26 97.7 81 16 117/58 (77) 97 09/08/17 20:44 97.6 88 20 122/59 (80) 93 09/08/17 20:05 96 09/08/17 16:38 98.7 70 18 127/66 (86) 93 I/O 09/08/17 09/08/17 09/08/17 09/09/17 09/09/17 09/09/17 07:00 15:00 23:00 07:00 15:00 23:00 Intake Total 480 ml 300 ml Output Total 550 ml Balance 480 ml -250 ml Intake Oral 480 ml IV Total 300 ml Output Urine Total 550 ml Result Diagram: 09/07/17 1650 09/07/17 1650 Imaging Last 48 hours Impressions Shoulder X-Ray 09/08/17 0000 Signed Impressions: Service Date/Time: Friday, September 08, 2017 19:18 - CONCLUSION: Negative for fracture or dislocation. Follow up in 7-10 days is suggested if symptoms persist. Bari Vegas MD FACR Objective Remarks Patient has tenderness and swelling to the right knee with palpation. Canvas knee splint was ill fitting. I readjusted it and reapplied it correctly. + NVI. + SILT. Calf is soft and nontender. Assessment & Plan Assessment and Plan Right patella comminuted fracture with minimal displacement Left shoulder contusion I reviewed the XR's of the left shoulder that was ordered yesterday and agree with the radiologist's interpretation showing no fracture or dislocation. We will continue with conservative management of the left shoulder. When the patient f/u in the office we may want to obtain an MRI to better evaluate the shoulder for an injury to the rotator cuff. We could also consider PT and/or cortisone injections The patient should remain toe touch WB on the RLE with the use of a knee immobilizer. No AROM. We will follow this closely in the office in 1 week and will repeat XRs of the knee. If there is further displacement we may have to consider operative management. Jorge L Brumfield Sep 09, 2017 15:54
--- NOTE | 2017-09-11 08:16 | MB ---
cc: Librado Couch MD DATE: 09/08/2017 CHIEF COMPLAINT: Fall with right knee and left shoulder pain. HISTORY OF PRESENT ILLNESS: This is a 66-year-old female who presents to the Emergency Department with a history of hypertension, high cholesterol, osteoporosis, and a history of falls. The patient was brought to the Emergency Department after falling while walking outside. The patient states her legs gave out and she fell. The patient states she landed on her knees. The patient states she did not lose consciousness. The patient states she had significant right knee pain and some left shoulder pain. The patient initially described her pain as being severe. The patient was unable to ambulate. The patient was helped back to her house by a neighbor. The patient denies any previous history of left shoulder and right knee pain. Currently, the patient describes her pain as intermittent. The patient states the intensity of her pain has improved and is a 5/10. The patient states the morphine she is receiving in the hospital has been helpful. The patient denies any tingling or numbness about the extremities. REVIEW OF SYSTEMS: Negative x12 except for what is stated in the HPI. PAST MEDICAL HISTORY: Includes hypertension, hypercholesterolemia, uterine cancer, osteoporosis, and frequent falls. PAST SURGICAL HISTORY: Includes an appendectomy, partial hysterectomy, and cardiac catheterization which she states was negative. SOCIAL HISTORY: Includes occasional use of alcohol and smoking 6 cigarettes a day. The patient also occasionally uses marijuana. FAMILY HISTORY: The patient's mother of stomach cancer at an early age. The patient's father of diabetes and cardiac-related issues at a young age. ALLERGIES: PENICILLIN. MEDICATIONS: Active medications include: 1. Mobic 7.5 mg by mouth twice a day. 2. Propranolol 20 mg tablets by mouth every 8 hours. 3. Xanax 1 mg tablet by mouth daily as needed for anxiety. PHYSICAL EXAMINATION: VITAL SIGNS: Temperature 98.7, pulse 70, respirations 18, blood pressure 127/66, and pulse oximetry is 93% on room air. GENERAL: This is a 66-year-old female in no acute distress. SKIN: Warm and dry with small abrasions to the bilateral knees, left hand, and bilateral elbows. HEAD: Atraumatic and normocephalic. EYES: PERRLA. EARS, NOSE AND THROAT: There is no nasal bleeding or discharge, and mucous membranes are pink and moist. NECK: Trachea is midline and the neck is supple. CARDIOVASCULAR: The patient has 2+ radial and pedal pulses bilaterally. RESPIRATORY: The patient has symmetric chest wall rise and nonlabored breathing. GASTROINTESTINAL: Abdomen is soft, round and nontender. MUSCULOSKELETAL: The patient has limited active range of motion of the right knee secondary to pain. The patient has tenderness to palpation about the patella. No joint line tenderness. There is mild swelling to the right knee. There is mild ecchymosis to the right knee. The patient has mildly limited active range of motion of the left shoulder and has to assist with her right hand for range of motion. The patient has some mild swelling to the left shoulder and some tenderness to palpation about the clavicle. Skin is intact about the left shoulder. Regarding the patient's bilateral ankles, left knee, and bilateral hips, there is no tenderness to palpation or limited range of motion. The patient has no tenderness and good range of motion of the bilateral wrists, elbows, and right shoulder. NEUROLOGIC: The patient is alert and oriented x3 and has no obvious cranial nerve deficits. LABORATORY DATA: Labs taken on 09/07/2017 shows white blood cells are 10.2, hemoglobin 15, hematocrit 43.1, platelets 359, creatinine 0.67, glucose 80, INR is 1, and urinalysis is negative for infection. IMAGING: X-rays taken of the right knee, 3 views, show a comminuted patella fracture. X-rays, 4 views of the right knee on 09/07/2017 reads as a mildly comminuted fracture of the patella. I have reviewed these images and agree with the radiologist's interpretation. There is some mild comminution with overall good alignment of the fractures. CT of the brain without contrast taken on 09/07/2017 reads as diffuse decreased attenuation in the supratentorial white matter suggesting ischemic demyelination and no evidence of mass effect, edema, or acute hemorrhage. IMPRESSION: 1. Right knee mildly comminuted patella fracture and overall good alignment. 2. Left shoulder contusion, rule out fracture. MEDICAL DECISION MAKING: I did review the x-rays taken of the right knee, 4 views, which show a patellar fracture that has some mild comminution. The overall alignment of the fracture is good. Based on this, I do feel that we can remain conservative with management of the fracture. I have placed the patient in a canvas knee splint. The patient will wear this at all times. The patient can be toe-touch weightbearing on the right lower extremity. The patient should use a walker for ambulation. We did have a discussion today regarding the possibility of a future surgery if the current fractures were to displace further. I would like to follow this closely as an outpatient. We will repeat x-rays in 1 week to reassess the fracture and make sure that this is still stable. The patient did have some weakness and pain about the left shoulder with today's clinical exam. I would like to obtain an x-ray of the left shoulder for further evaluation. The patient could have an injury to the rotator cuff, based on her exam today. We will follow this closely as well. If the patient continues to have pain and limitation in the future, we could consider an MRI of the left shoulder. I have reviewed the above impression and plan of care with Dr. Couch, and he agrees with this documentation. Dictated by JOYCE Smith MD INGRID Greenfield/[email or web address] , 06:55 PM , 07:45 PM
== END 2017-09-09 14:55 | disposition home or self-care (01) ==
LOC: NEPE 16:33 → NEDA 18:35 → NEPFCDU 19:25
PROVIDERS: ADMIT Hospitalist; ATTEND Hospitalist
DX: S82.041A Displaced comminuted fracture of right patella, initial encounter for closed fracture (principal); S40.012A Contusion of left shoulder, initial encounter; R53.1 Weakness; I10 Essential (primary) hypertension; E78.5 Hyperlipidemia, unspecified; F12.90 Cannabis use, unspecified, uncomplicated; E78.00 Pure hypercholesterolemia, unspecified; J45.909 Unspecified asthma, uncomplicated; F41.9 Anxiety disorder, unspecified; F17.210 Nicotine dependence, cigarettes, uncomplicated; M81.0 Age-related osteoporosis without current pathological fracture; R29.6 Repeated falls; Z80.0 Family history of malignant neoplasm of digestive organs; Z82.0 Family history of epilepsy and other diseases of the nervous system; Z82.49 Family history of ischemic heart disease and other diseases of the circulatory system; Z85.42 Personal history of malignant neoplasm of other parts of uterus; Z83.3 Family history of diabetes mellitus; Z90.710 Acquired absence of both cervix and uterus; Z91.81 History of falling; W19.XXXA Unspecified fall, initial encounter
CPT/HCPCS: 70450; 71045; 73030; 73564; 80053; 81001; 82550; 83735; 84100; 85025; 85610; 85730; 93005; 96372; 96374; 96375; 96376; 97162; 97530; 99285; G0378; G8987; G8988; J1644; J2270; J2405; L1830

== ENCOUNTER 2018-03-19 08:29 | Inpatient (IN) ==
[2018-03-19 09:21] LABS: Baso % (Auto) 0.5 % (0.0-2.0); Eos # (Auto) 0.1 th/mm3 (0.0-0.4); Eos % (Auto) 1.7 % (0.0-4.0); Hematocrit 42.3 % (35.0-46.0); Hemoglobin 14.1 gm/dL (11.6-15.3); Lymph # (Auto) 2.1 th/mm3 (1.0-4.8); Mean Corpuscular HGB Conc 33.3 % (32.0-36.0); Mean Corpuscular Hemoglobin 31.2 pg (27.0-34.0); Mean Corpuscular Volume 93.7 fL (80.0-100.0); Mean Platelet Volume 7.3 fL (7.0-11.0); Mono # (Auto) 0.6 th/mm3 (0.0-0.9); Mono % (Auto) 6.7 % (0.0-8.0); Neut # (Auto) 5.6 th/mm3 (1.8-7.7); Neut % (Auto) 66.1 % (16.0-70.0); Platelet Count 373 th/mm3 (150-450); Red Blood Count 4.51 mil/mm3 (4.00-5.30); Red Cell Distribution Width 14.2 % (11.6-17.2); White Blood Count 8.5 th/mm3 (4.0-11.0)
[2018-03-19 09:33] LABS: Activated Partial Thrombo Time 24.5 sec (24.3-30.1); Prothrombin Time 10.5 sec (9.8-11.6)
--- NOTE | 2018-03-19 09:47 | XR ---
EXAM DATE: 03/19/2018 8:51 AM EDT AGE/SEX: 67 years / Female INDICATIONS: Lethargic, possible fall, evaluate trauma to lumbar spine CLINICAL DATA: This is the patient's initial encounter. Patient reports that signs and symptoms have been present for 1 day and indicates a pain score of Nonresponsive. MEDICAL/SURGICAL HISTORY: Non-responsive. Non-responsive. COMPARISON: No prior exams available for comparison. FINDINGS: Mild dextroscoliosis centered at L2 with rotatory component. Moderate to severe disc space narrowing throughout the lumbar spine with endplate sclerosis, vacuum disc phenomenon and osteophytosis. Aortic and iliac artery calcifications are seen. CONCLUSION: Moderate to severe degenerative changes. Atherosclerosis. Electronically signed by: Kwesi Lauren MD 03/19/2018 9:46 AM EDT
--- NOTE | 2018-03-19 09:47 | XR ---
EXAM DATE: 03/19/2018 8:51 AM EDT AGE/SEX: 67 years / Female INDICATIONS: Lethargic, possible fall, evaluate trauma to left shoulder CLINICAL DATA: This is the patient's initial encounter. Patient reports that signs and symptoms have been present for 1 day and indicates a pain score of Nonresponsive. MEDICAL/SURGICAL HISTORY: Non-responsive. possible OD per orders Angioplasty. [place] [facility] [place]2VWS[place]. . FINDINGS: There are impingement type changes at the greater tuberosity again seen. No fracture or dislocation. Bone density is normal. CONCLUSION: No evidence of recent bony injury. Electronically signed by: Kwesi Lauren MD 03/19/2018 9:45 AM EDT
--- NOTE | 2018-03-19 09:48 | XR ---
EXAM DATE: 03/19/2018 8:52 AM EDT AGE/SEX: 67 years / Female INDICATIONS: Lethargic, short of breath CLINICAL DATA: This is the patient's initial encounter. Patient reports that signs and symptoms have been present for 1 day and indicates a pain score of Nonresponsive. MEDICAL/SURGICAL HISTORY: Non-responsive. possible OD per orders Non-responsive. COMPARISON: [facility] – [place], CHEST SINGLE AP, 09/07/2017. . FINDINGS: Previously described focal nodular opacity in the right midlung is not as well demonstrated on curren t exam. No significant new focal or parenchymal opacities. The cardiomediastinal contours are unremar kable. Osseous structures are intact. CONCLUSION: 1. No acute abnormality. Electronically signed by: John Veliz MD 03/19/2018 9:47 AM EDT
--- NOTE | 2018-03-19 09:48 | CT ---
EXAM DATE: 03/19/2018 9:05 AM EDT AGE/SEX: 67 years / Female INDICATIONS: Altered mental status. CLINICAL DATA: This is the patient's initial encounter. Patient reports that signs and symptoms have been present for 1 day and indicates a pain score of 0/10. MEDICAL/SURGICAL HISTORY: None. None. RADIATION DOSE: 56.35 CTDI (mGy) COMPARISON: [facility] – [place], [place] BRAIN W/O CONTRAST, 09/07/2017. . TECHNIQUE: CT of the head without contrast. Using automated exposure control and adjustment of the mA and/or kV according to patient size, radiation dose was kept as low as reasonably achievable to ob tain optimal diagnostic quality images. DICOM format image data is available electronically for revi ew and comparison. FINDINGS: There is mild prominence of the CSF spaces again seen. Patchy areas of decreased attenuation are note d in the bilateral centrum semiovale and periventricular white matter, unchanged. There are no signs of acute infarct, intracranial hemorrhage, or mass. No fractures. CONCLUSION: 1. Stable white matter disease. . Electronically signed by: Kwesi Lauren MD 03/19/2018 9:47 AM EDT
[2018-03-19 10:03] LABS: Alanine Aminotransferase 21 U/L (10-53); Creatine Kinase 178 U/L (26-192); Total Protein 6.2 g/dL (6.4-8.2); Troponin I 0.57 ng/mL (0.02-0.05)
[2018-03-19 10:08] LABS: Glomerular Filtration Rate Greater Than 89 mL/min (>89)
[2018-03-19 10:11] LABS: Anion Gap 9 meq/L (5-15); Aspartate Aminotransferase 27 U/L (15-37); Blood Urea Nitrogen 21 mg/dL (7-18); Calcium 8.4 mg/dL (8.5-10.1); Carbon Dioxide 22.4 meq/L (21.0-32.0); Chloride 112 meq/L (98-107); Glucose,Random 79 mg/dL (74-106); Potassium 3.9 meq/L (3.5-5.1); Sodium 143 meq/L (136-145)
[2018-03-19 10:12] LABS: Albumin 3.2 g/dL (3.4-5.0); Alkaline Phosphatase 55 U/L (45-117)
[2018-03-19 10:14] LABS: Amphetamine Screen,Urine Neg (Neg); Barbiturate Screen,Urine Neg (Neg); Cannabinoid Screen,Urine Neg (Neg); Cocaine Screen,Urine Neg (Neg)
[2018-03-19 10:16] LABS: Bilirubin,Urine Negative (Negative); Clarity,Urine Clear (Clear); Color,Urine Yellow (Yellw/Straw); Glucose,Urine (UA) Negative (Negative); Hyaline Casts,Urine 1 /lpf (0-3); Leukocyte Esterase,Urine Negative (Negative); Mucus,Urine Few /lpf (Occasional); Nitrite,Urine Negative (Negative); Specific Gravity,Urine 1.012 (1.002-1.035)
[2018-03-19] MEDS ORDERED: Heparin 10,000 UNITS/10 ML Vial (for IV use) IV.PUSH STA (10:52)
--- NOTE | 2018-03-19 10:54 | ED ---
HPI General Chief complaint: Overdose Stated complaint: Poss OD Time Seen by Provider: 03/19/18 08:41 Source: patient and EMS Mode of arrival: EMS Limitations: no limitations History of Present Illness HPI narrative: Patient is a 67-year-old female who comes in because she was unable to get off the ground today and is complaining of chest pain. She says that she fell on her buttocks and has pain there. She denies hitting her head or losing. EMS states that the fire department was called out earlier this morning for a lift assist as well. She says she has pain to the right side of her chest. She denies any shortness of breath, nausea or vomiting. Severity is moderate. Of note, EMS states there was an empty bottle of alprazolam at the house which was filled 2 days ago for 45 pills. Related Data Home Medications Medication Instructions Recorded Confirmed alprazolam 1 mg PO BID PRN 03/19/18 03/19/18 Allergies Allergy/AdvReac Type Severity Reaction Status Date / Time penicillin G Allergy Unknown Blister Verified 03/19/18 08:39 Review of Systems ROS: all other systems reviewed are negative Constitutional Denies chills and Denies fever(s) ENT Denies dizziness Cardiovascular Reports chest pain Respiratory Denies dyspnea Gastrointestinal Denies nausea and Denies vomiting Musculoskeletal Denies myalgias and Denies arthralgias Integumentary/Breasts Denies sores and Denies wounds Neurologic Denies focal weakness and Denies numbness PMFSH Medical History Medical History Anxiety (Acute) Family History Family History Other Osteoarthritis Social History Social History Substance History: No History of Abuse Second Hand Smoke Exposure: No Smoking Status: Current every day smoker Tobacco Type: Cigarettes How Often Do You Have a Drink Containing Alcohol: Monthly or less Recent Travel in [facility] within the Last 8 Weeks: No Recent Out of Country Travel within the Last 8 Weeks: No Immunization History Tetanus Immunization: Unsure Exam Narrative Exam Narrative: GENERAL: Awake and alert, in no acute distress. SKIN: Focused skin assessment warm/dry. abrasion to the right arm. HEAD: Atraumatic. Normocephalic. EYES: Pupils equal and round. No scleral icterus. EOMI. ENT: Mucous membranes pink and moist. NECK: Trachea midline. No JVD. No cervical spine tenderness. CARDIOVASCULAR: Regular rate and rhythm. No murmur appreciated. RESPIRATORY: No accessory muscle use. Clear to auscultation. Breath sounds equal bilaterally. GASTROINTESTINAL: Abdomen soft, non-tender, nondistended. MUSCULOSKELETAL: No obvious deformities. No clubbing. No cyanosis. No edema. NEUROLOGICAL: Awake and alert. No obvious cranial nerve deficits. Motor grossly within normal limits. Normal speech. PSYCHIATRIC: Appropriate mood and affect; insight and judgment normal. Course Initial Documented Vital Signs Temperature 98.8 F 03/19/18 08:42 Pulse Rate 70 03/19/18 08:42 Respiratory Rate 18 03/19/18 08:42 Blood Pressure 129/63 03/19/18 08:42 Pulse Oximetry 95 03/19/18 08:42 Last Documented Vital Signs Temperature 98.8 F 03/19/18 08:42 Pulse Rate 93 H 03/19/18 12:41 Respiratory Rate 18 03/19/18 12:41 Blood Pressure 161/85 H 03/19/18 12:41 Pulse Oximetry 94 L 03/19/18 12:41 Medical Decision Making MDM Narrative Medical decision making narrative: Patient is a 67 year old female who comes in complaining of chest pain and pain to her buttocks. IV established, labs sent. Labs show elevated troponin. CT head shows no acute abnormalities. Given Aspirin and started on Heparin. admitted for further management. Medical Screen Exam Complete: Yes Emergency Medical Condition: Yes Differential Diagnosis Differential Diagnosis: ACS vs dehydration vs drug overdose Medical Records Medical records reviewed: Yes I reviewed the patient's medical records. Lab Data Lab results reviewed: Yes I reviewed the patient's lab results. Result diagrams: 03/19/18 12:45 03/19/18 08:56 Lab Results 03/19/18 03/19/18 03/19/18 Range/Units 08:56 08:56 08:56 WBC 8.5 (4.0-11.0) th/mm3 RBC 4.51 (4.00-5.30) mil/mm3 Hgb 14.1 (11.6-15.3) gm/dL Hct 42.3 (35.0-46.0) % MCV 93.7 (80.0-100.0) fL MCH 31.2 (27.0-34.0) pg MCHC 33.3 (32.0-36.0) % RDW 14.2 (11.6-17.2) % Plt Count 373 (150-450) th/mm3 MPV 7.3 (7.0-11.0) fL Neut % (Auto) 66.1 (16.0-70.0) % Lymph % (Auto) 25.0 (9.0-44.0) % [place] % (Auto) 6.7 (0.0-8.0) % Eos % (Auto) 1.7 (0.0-4.0) % Baso % (Auto) 0.5 (0.0-2.0) % Neut # (Auto) 5.6 (1.8-7.7) th/mm3 Lymph # (Auto) 2.1 (1.0-4.8) th/mm3 [place] # (Auto) 0.6 (0.0-0.9) th/mm3 Eos # (Auto) 0.1 (0.0-0.4) th/mm3 Baso # (Auto) 0.0 (0.0-0.2) th/mm3 WBC Differential . Differential Comment Auto diff final PT 10.5 (9.8-11.6) sec INR 1.0 Ratio APTT 24.5 (24.3-30.1) sec Sodium 143 (136-145) meq/L Potassium 3.9 (3.5-5.1) meq/L Chloride 112 H (98-107) meq/L Carbon Dioxide 22.4 (21.0-32.0) meq/L Anion Gap 9 (5-15) meq/L BUN 21 H (7-18) mg/dL Creatinine 0.64 (0.50-1.00) mg/dL Estimated GFR Greater than 89 (>89) mL/min Random Glucose 79 (74-106) mg/dL Calcium 8.4 L (8.5-10.1) mg/dL Prot Corrected Calcium Total Bilirubin 0.2 (0.2-1.0) mg/dL AST 27 (15-37) U/L ALT 21 (10-53) U/L Alkaline Phosphatase 55 (45-117) U/L Total Creatine Kinase 178 (26-192) U/L CK-MB (CK-2) 5.7 H (0.5-3.6) ng/mL Troponin I 0.57 H (0.02-0.05) ng/mL Total Protein 6.2 L (6.4-8.2) g/dL Albumin 3.2 L (3.4-5.0) g/dL Urine Color (Yellw/Straw) Urine Clarity (Clear) Urine pH (5.0-8.5) Ur Specific [place] (1.002-1.035) Urine Protein (Neg-Trace) mg/dL Urine Glucose (UA) (Negative) mg/dL Urine Ketones (Negative) mg/dL Urine Occult Blood (Negative) Urine Nitrate (Negative) Urine Bilirubin (Negative) Urine Urobilinogen (Less than 2) mg/dL Ur Leukocyte Esterase (Negative) Urine RBC (0-3) /hpf Urine WBC (0-5) /hpf Hyaline Casts (0-3) /lpf Urine Mucus (Occasional) /lpf Micro UA Comment Ur Microscopic Review Urine Culture Comments Urine Opiates Screen (Neg) Ur Barbiturates Screen (Neg) Ur Amphetamines Screen (Neg) U Benzodiazepines Scrn (Neg) Urine Cocaine Screen (Neg) U Cannabinoids Screen (Neg) Serum Alcohol Less than 3 (0-5) mg/dL 03/19/18 03/19/18 03/19/18 Range/Units 08:56 09:49 09:49 WBC (4.0-11.0) th/mm3 RBC (4.00-5.30) mil/mm3 Hgb (11.6-15.3) gm/dL Hct (35.0-46.0) % MCV (80.0-100.0) fL MCH (27.0-34.0) pg MCHC (32.0-36.0) % RDW (11.6-17.2) % Plt Count (150-450) th/mm3 MPV (7.0-11.0) fL Neut % (Auto) (16.0-70.0) % Lymph % (Auto) (9.0-44.0) % [place] % (Auto) (0.0-8.0) % Eos % (Auto) (0.0-4.0) % Baso % (Auto) (0.0-2.0) % Neut # (Auto) (1.8-7.7) th/mm3 Lymph # (Auto) (1.0-4.8) th/mm3 [place] # (Auto) (0.0-0.9) th/mm3 Eos # (Auto) (0.0-0.4) th/mm3 Baso # (Auto) (0.0-0.2) th/mm3 WBC Differential Differential Comment PT (9.8-11.6) sec INR Ratio APTT (24.3-30.1) sec Sodium Cancelled (136-145) meq/L Potassium Cancelled (3.5-5.1) meq/L Chloride Cancelled (98-107) meq/L Carbon Dioxide Cancelled (21.0-32.0) meq/L Anion Gap Cancelled (5-15) meq/L BUN Cancelled (7-18) mg/dL Creatinine Cancelled (0.50-1.00) mg/dL Estimated GFR Cancelled (>89) mL/min Random Glucose Cancelled (74-106) mg/dL Calcium Cancelled (8.5-10.1) mg/dL Prot Corrected Calcium Cancelled Total Bilirubin Cancelled (0.2-1.0) mg/dL AST Cancelled (15-37) U/L ALT Cancelled (10-53) U/L Alkaline Phosphatase Cancelled (45-117) U/L Total Creatine Kinase Cancelled (26-192) U/L CK-MB (CK-2) (0.5-3.6) ng/mL Troponin I Cancelled (0.02-0.05) ng/mL Total Protein Cancelled (6.4-8.2) g/dL Albumin Cancelled (3.4-5.0) g/dL Urine Color Yellow (Yellw/Straw) Urine Clarity Clear (Clear) Urine pH 5.0 (5.0-8.5) Ur Specific [place] 1.012 (1.002-1.035) Urine Protein Negative (Neg-Trace) mg/dL Urine Glucose (UA) Negative (Negative) mg/dL Urine Ketones Negative (Negative) mg/dL Urine Occult Blood Moderate H (Negative) Urine Nitrate Negative (Negative) Urine Bilirubin Negative (Negative) Urine Urobilinogen Less than 2 (Less than 2) mg/dL Ur Leukocyte Esterase Negative (Negative) Urine RBC 17 H (0-3) /hpf Urine WBC 1 (0-5) /hpf Hyaline Casts 1 (0-3) /lpf Urine Mucus Few H (Occasional) /lpf Micro UA Comment Culture not ind Ur Microscopic Review Not Reportable Urine Culture Comments Culture not ind Urine Opiates Screen Neg (Neg) Ur Barbiturates Screen Neg (Neg) Ur Amphetamines Screen Neg (Neg) U Benzodiazepines Scrn Pos H (Neg) Urine Cocaine Screen Neg (Neg) U Cannabinoids Screen Neg (Neg) Serum Alcohol (0-5) mg/dL 03/19/18 03/19/18 Range/Units 12:39 12:45 WBC 9.7 (4.0-11.0) th/mm3 RBC 4.60 (4.00-5.30) mil/mm3 Hgb 14.6 (11.6-15.3) gm/dL Hct 42.9 (35.0-46.0) % MCV 93.1 (80.0-100.0) fL MCH 31.7 (27.0-34.0) pg MCHC 34.0 (32.0-36.0) % RDW 14.1 (11.6-17.2) % Plt Count 340 (150-450) th/mm3 MPV 7.3 (7.0-11.0) fL Neut % (Auto) (16.0-70.0) % Lymph % (Auto) (9.0-44.0) % [place] % (Auto) (0.0-8.0) % Eos % (Auto) (0.0-4.0) % Baso % (Auto) (0.0-2.0) % Neut # (Auto) (1.8-7.7) th/mm3 Lymph # (Auto) (1.0-4.8) th/mm3 [place] # (Auto) (0.0-0.9) th/mm3 Eos # (Auto) (0.0-0.4) th/mm3 Baso # (Auto) (0.0-0.2) th/mm3 WBC Differential Differential Comment PT (9.8-11.6) sec INR Ratio APTT (24.3-30.1) sec Sodium (136-145) meq/L Potassium (3.5-5.1) meq/L Chloride (98-107) meq/L Carbon Dioxide (21.0-32.0) meq/L Anion Gap (5-15) meq/L BUN (7-18) mg/dL Creatinine (0.50-1.00) mg/dL Estimated GFR (>89) mL/min Random Glucose (74-106) mg/dL Calcium (8.5-10.1) mg/dL Prot Corrected Calcium Total Bilirubin (0.2-1.0) mg/dL AST (15-37) U/L ALT (10-53) U/L Alkaline Phosphatase (45-117) U/L Total Creatine Kinase 190 (26-192) U/L CK-MB (CK-2) (0.5-3.6) ng/mL Troponin I 0.61 H* (0.02-0.05) ng/mL Total Protein (6.4-8.2) g/dL Albumin (3.4-5.0) g/dL Urine Color (Yellw/Straw) Urine Clarity (Clear) Urine pH (5.0-8.5) Ur Specific [place] (1.002-1.035) Urine Protein (Neg-Trace) mg/dL Urine Glucose (UA) (Negative) mg/dL Urine Ketones (Negative) mg/dL Urine Occult Blood (Negative) Urine Nitrate (Negative) Urine Bilirubin (Negative) Urine Urobilinogen (Less than 2) mg/dL Ur Leukocyte Esterase (Negative) Urine RBC (0-3) /hpf Urine WBC (0-5) /hpf Hyaline Casts (0-3) /lpf Urine Mucus (Occasional) /lpf Micro UA Comment Ur Microscopic Review Urine Culture Comments Urine Opiates Screen (Neg) Ur Barbiturates Screen (Neg) Ur Amphetamines Screen (Neg) U Benzodiazepines Scrn (Neg) Urine Cocaine Screen (Neg) U Cannabinoids Screen (Neg) Serum Alcohol (0-5) mg/dL Imaging Data Radiologist's impression: Head CT 03/19/18 08:51 CONCLUSION: 1. Stable white matter disease. . Lumbar Spine X-Ray 03/19/18 08:51 CONCLUSION: Moderate to severe degenerative changes. Atherosclerosis. Shoulder X-Ray 03/19/18 08:51 CONCLUSION: No evidence of recent bony injury. Chest X-Ray 03/19/18 08:52 CONCLUSION: 1. No acute abnormality. ECG Data EKG Prior to Arrival: No Attestation: I personally reviewed and interpreted this ECG as follows: Interpretation: ECG shows normal sinus rhythm with occasional PVCs, no ST elevation or depression, T wave inversions in lead II, 3, aVF Discharge Plan Discharge Disposition Patient Disposition: 30 Still Patient Discharge Condition Condition: Stable Discharge Details Diagnosis: Troponin level elevated, Chest pain Physicians Team ED Provider: Sabrina Kathleen Primary Care Provider: UNKNOWN, Attending Provider: Jorge L Prescott Other Providers: Jakub Field Discharge Interventions Interventions: Vital Signs Last Done: 03/19/18 12:41 Status ED Status: Admitted Patient
[2018-03-19 10:57] LABS: Creatine Kinase MB 5.7 ng/mL (0.5-3.6)
[2018-03-19 10:57] LABS: Opiate Screen,Urine Neg (Neg)
[2018-03-19] MEDS: Heparin Drip 25,000 UNIT/250 ML BAG IV.CONT PRN (11:01)
[2018-03-19] MEDS ORDERED: Sod Chloride 0.9% Inj 1,000 ML IV.CONT SCH (11:15)
[2018-03-19] MEDS ORDERED: Heparin - SQ 10,000 UNITS/ML Vial SQ SCH (12:00)
--- NOTE | 2018-03-19 12:15 | P.HPIM ---
History of Present Illness Primary Care Physician: UNKNOWN History of Present Illness: Mrs. Brewer is a 67-year-old female. She is admitted secondary to chest pain. She had a fall at home and reported chest pain when she was taken off the floor by EMS. She could not get up on her own. Findings in the ER are an EKG which suggest possible lateral/inferior ischemia and an initial elevated troponin of 0.57. The patient reports that she does not follow with a smocker. She thinks she might of had a heart attack before, but she is not sure about this. She is certain that she is anxiety.. No other complaints at this time. She actually says that her chest pain is improved when I see her in the ER today. No nausea. No vomiting. - Diagnosis (1) Troponin level elevated (2) Chest pain (3) ST segment changes on electrocardiogram (4) Generalized anxiety disorder Inpatient Certification: I certify that the inpatient services were ordered in accordance with Medicare regulations governing the order. This includes certification that hospital inpatient services are reasonable and necessary and in the case of services not specified as inpatient-only under 42 CFR 419.22(n), that they are appropriately provided as inpatient services in accordance to with the 2-midnight benchmark under 43 CFR 412.3(e) Estimated Total Length of Stay (Days): 2 Plans for Post Hospital Care: SNF Review of Systems Constitutional: No fevers, no chills no night sweats, no fatigue, no weakness Eyes: No eye pain, no blurry vision, no loss of vision ENT: No sore throat, no ear pain, no rhinorrhea Cardiovascular: chest pain, no tachycardia, no palpitations, no shortness of breath, no syncope Respiratory: No wheezing, no cough, no shortness of breath Gastrointestinal: No abdominal pain, no black tarry stools, no bright red blood per rectum, no vomiting, no diarrhea Musculoskeletal: No joint pain, no muscle cramps, no stiffness Integumentary: No rash, no ulcers, no drainage Neurologic: No sensory loss, no loss of motor function, no dizziness Psychiatric: No behavioral changes, no hallucinations, no suicidal ideations PMF - History History Provided By: Patient - Medical History Medical History: Medical History (Last Updated 03/19/18 @ 08:41 by Ashli Gallegos) Anxiety - Family History Family History: Family History (Last Updated 03/19/18 @ 12:11 by Jorge L Prescott MD) Other Osteoarthritis - Tobacco History Second Hand Smoke Exposure: No Tobacco Use In Past 30 Days: Yes Smoking Status: Current every day smoker Tobacco Type: Cigarettes - Alcohol History How Often Do You Have a Drink Containing Alcohol: Monthly or less - Substance Use History Substance History: No History of Abuse - Travel History Recent Travel in the [place] Within the Last 8 Weeks: No Recent Travel Out of the Country Within the Last 8 Weeks: No - Immunization History Tetanus Immunization: Unsure Medications and Allergies Active Medications: Active Medications Al Hydroxide/Mg Hydroxide (Milk Of Mary[place] Liluciana) 30 ml PO Q12H PRN PRN Reason: Mild Constipation Heparin Sodium/Dextrose (Heparin/D5w 25,000 U/250 Ml) 25,000 unit in 250 mls @ 0 mls/hr IV.CONT TITRATE PRN; Protocol PRN Reason: Per Protocol Last Admin: 03/19/18 11:01 Dose: 1,000 units/hr, 10 mls/hr Sodium Chloride (Ns Inj) 1,000 mls @ 75 mls/hr IV.CONT .[id number] MARBELLA Ondansetron HCl (Zofran Inj) 4 mg IV.PUSH Q6H PRN PRN Reason: NAUSEA OR VOMITING Sodium Chloride (Ns Flush) 2 ml IV.FLUSH UNSCH PRN PRN Reason: FLUSH AFTER USING IV ACCESS Allergies Allergy/AdvReac Type Severity Reaction Status Date / Time penicillin G Allergy Unknown Blister Verified 03/19/18 08:39 Home Medications Medication Instructions Recorded Confirmed Type alprazolam 1 mg PO BID PRN 03/19/18 03/19/18 History Exam Vital signs: Vital Signs 03/19/18 08:42 03/19/18 08:58 03/19/18 11:24 Temperature 98.8 F Pulse Rate 70 68 Respiratory Rate 18 14 Blood Pressure 129/63 134/65 Pulse Oximetry 95 95 95 Intake & Output 03/18/18 03/19/18 03/19/18 18:59 06:59 18:59 Weight 72.121 kg Narrative: GENERAL: NAD, A&Ox3 HEAD: Normocephalic. NECK: Supple, trachea midline. No lymphadenopathy. EYES: No scleral icterus. No injection or drainage. CARDIOVASCULAR: Regular rate and rhythm without murmurs, gallops, or rubs. RESPIRATORY: Breath sounds equal bilaterally. No accessory muscle use. GASTROINTESTINAL: Abdomen soft, non-tender, nondistended. MUSCULOSKELETAL: No cyanosis, or edema. SKIN: Warm and dry. NEURO: No focal neurological deficits. Results - Labs CBC & Chem 7: 03/19/18 08:56 03/19/18 08:56 Labs: Short CBC 03/19/18 Range/Units 08:56 WBC 8.5 (4.0-11.0) th/mm3 Hgb 14.1 (11.6-15.3) gm/dL Hct 42.3 (35.0-46.0) % Plt Count 373 (150-450) th/mm3 BMP 03/19/18 03/19/18 08:56 08:56 Sodium 143 Cancelled Potassium 3.9 Cancelled Chloride 112 H Cancelled Carbon Dioxide 22.4 Cancelled BUN 21 H Cancelled Creatinine 0.64 Cancelled Calcium 8.4 L Cancelled Cardiac Enzymes 03/19/18 03/19/18 Range/Units 08:56 08:56 Total Creatine Kinase 178 Cancelled (26-192) U/L CK-MB (CK-2) 5.7 H (0.5-3.6) ng/mL Troponin I 0.57 H Cancelled (0.02-0.05) ng/mL Liver Function 03/19/18 03/19/18 Range/Units 08:56 08:56 Total Bilirubin 0.2 Cancelled (0.2-1.0) mg/dL AST 27 Cancelled (15-37) U/L ALT 21 Cancelled (10-53) U/L Alkaline Phosphatase 55 Cancelled (45-117) U/L Albumin 3.2 L Cancelled (3.4-5.0) g/dL Urine 03/19/18 Range/Units 09:49 Urine Color Yellow (Yellw/Straw) Urine Clarity Clear (Clear) Urine pH 5.0 (5.0-8.5) Ur Specific [place] 1.012 (1.002-1.035) Urine Protein Negative (Neg-Trace) mg/dL Urine Glucose (UA) Negative (Negative) mg/dL - Imaging Impressions Head CT 03/19/18 08:51 CONCLUSION: 1. Stable white matter disease. . Lumbar Spine X-Ray 03/19/18 08:51 CONCLUSION: Moderate to severe degenerative changes. Atherosclerosis. Shoulder X-Ray 10/15/18 08:51 CONCLUSION: No evidence of recent bony injury. Chest X-Ray 03/19/18 08:52 CONCLUSION: 1. No acute abnormality. Caprini VTE Risk Assessment Caprini VTE Risk Assessment: Moderate/High Risk (score >= 2) Caprini Risk Assessment Model: Point Value = 1 Point Value = 2 Point Value = 3 Point Value = 5 Age 41-60 Minor surgery BMI > 25 kg/m2 Swollen legs Varicose veins or History of unexplained or recurrent spontaneous Oral contraceptives or hormone replacement Sepsis (< 1 month) Serious lung disease, including pneumonia (< 1 month) Abnormal pulmonary function Acute myocardial infarction Congestive heart failure (< 1 month) History of inflammatory bowel disease Medical patient at bed rest Age 61-74 Arthroscopic surgery Major open surgery (> 45 min) Laparoscopic surgery (> 45 min) Malignancy Confined to bed (> 72 hours) Immobilizing plaster cast Central venous access Age >= 75 History of VTE Family history of VTE Factor V Leiden Prothrombin [id number] Lupus anticoagulant Anticardiolipin antibodies Elevated serum homocysteine Heparin-induced thrombocytopenia Other congenital or acquired thrombophilia Stroke (< 1 month) Elective arthroplasty Hip, pelvis, or leg fracture Acute spinal cord injury (< 1 month) Prophylaxis Regimen: Total Risk Factor Score Risk Level Prophylaxis Regimen 0-1 Low Early ambulation 2 Moderate Order ONE of the following: *Sequential Compression Device (SCD) *Heparin 5000 units SQ BID 3-4 Higher Order ONE of the following medications: *Heparin 5000 units SQ TID *Enoxaparin/Lovenox 40 mg SQ daily (WT < 150 kg, CrCl > 30 mL/min) *Enoxaparin/Lovenox 30 mg SQ daily (WT < 150 kg, CrCl > 10-29 mL/min) *Enoxaparin/Lovenox 30 mg SQ BID (WT < 150 kg, CrCl > 30 mL/min) AND/OR *Sequential Compression Device (SCD) 5 or more Highest Order ONE of the following medications: *Heparin 5000 units SQ TID (Preferred with Epidurals) *Enoxaparin/Lovenox 40 mg SQ daily (WT < 150 kg, CrCl > 30 mL/min) *Enoxaparin/Lovenox 30 mg SQ daily (WT < 150 kg, CrCl > 10-29 mL/min) *Enoxaparin/Lovenox 30 mg SQ BID (WT < 150 kg, CrCl > 30 mL/min) AND *Sequential Compression Device (SCD) Assessment and Plan - Assessment (1) Troponin level elevated Code(s): R74.8 - Abnormal levels of other serum enzymes Status: Acute (2) Chest pain Code(s): R07.9 - Chest pain, unspecified Status: Acute (3) ST segment changes on electrocardiogram Code(s): R94.31 - Abnormal electrocardiogram [ECG] [EKG] Status: Acute (4) Generalized anxiety disorder Code(s): F41.1 - Generalized anxiety disorder Status: Acute - Plan 67-year-old female admitted with chest pain, EKG changes, and troponin elevation Chest pain Troponin elevation ST segment changes on EKG Follow cardiac enzymes Aspirin daily When necessary oxygen When necessary morphine for pain. When necessary nitroglycerin Follow on telemetry Cardiology consult Heparin drip General anxiety disorder As needed Xanax DVT prophylaxis Heparin drip
[2018-03-19] MEDS ORDERED: ALPRAZolam 0.25 MG Tablet PO PRN (12:16)
[2018-03-19] MEDS ORDERED: Morphine Inj 4 MG/ML Vial IV.PUSH PRN ×2 (12:17)
[2018-03-19] MEDS ORDERED: Sodium Chloride 0.9% 2 ML Flush PRN IV.FLUSH (13:01)
[2018-03-19 13:07] LABS: Hematocrit 42.9 % (35.0-46.0); Hemoglobin 14.6 gm/dL (11.6-15.3); Mean Corpuscular Hemoglobin 31.7 pg (27.0-34.0); Mean Corpuscular Volume 93.1 fL (80.0-100.0); Mean Platelet Volume 7.3 fL (7.0-11.0); Platelet Count 340 th/mm3 (150-450); Red Cell Distribution Width 14.1 % (11.6-17.2); White Blood Count 9.7 th/mm3 (4.0-11.0)
[2018-03-19 13:45] LABS: Troponin I 0.61 ng/mL (0.02-0.05)
[2018-03-19] MEDS ORDERED: fentaNYL Citrate Inj 100 MCG/2 ML Ampul IV.PUSH SCH (14:15)
--- NOTE | 2018-03-19 14:33 | MB ---
cc: Jakub Field MD DATE: 03/19/2018 CARDIOLOGY CONSULT NOTE REASON FOR CONSULTATION: Chest pain, abnormal troponin level. HISTORY OF PRESENT ILLNESS: The patient is a 67-year-old white female with basically no major past medical history, who presented to the hospital mainly complaining of shoulder and chest pain after a fall. The patient believes she may have lost consciousness very briefly resulting in the fall. There was no post-event disorientation. She is somewhat of a poor historian, but about three days ago she began to experience intermittent episodes of substernal chest discomfort described as "pressure" associated with shortness of breath without nausea or diaphoresis with multiple episodes lasting up to ten to fifteen minutes, no definite relation to exertion. She denies pleurisy, palpitations, pedal edema, paroxysmal nocturnal dyspnea. She reports having had a heart catheterization 15 years ago, which was normal. PAST MEDICAL HISTORY: None. CARDIAC MEDICATIONS AT HOME: None. ALLERGIES: PENICILLINS PAST SURGICAL HISTORY: 1. Appendectomy. 2. Partial hysterectomy. FAMILY HISTORY: The patient's father sustained a myocardial infarction at age 57. Her mother in her 20s from gastric cancer. SOCIAL HISTORY: The patient smokes about 5 cigarettes per day. She denies drug or alcohol abuse. REVIEW OF SYSTEMS: As in history of present illness, otherwise negative or noncontributory. She also denies headache, abdominal pain, melena, dyspepsia, bright red blood per rectum. PHYSICAL EXAMINATION: VITAL SIGNS: Her blood pressure 134/65 with a pulse of 68, respirations 14. GENERAL: She is a well-developed, well-nourished white female, in no acute distress. NECK: Jugular venous pressure is normal. Carotid pulses are 2+ bilaterally and without bruits. CHEST: Reveals clear lungs raymond. CARDIAC: She has a regular rhythm and rate without S3, S4, or murmur. ABDOMEN: She has a soft, nontender abdomen. Bowel sounds are present. There is no definite hepatosplenomegaly. EXTREMITIES: Reveals no clubbing, cyanosis or edema. Peripheral pulses are normal throughout. LABORATORY DATA: Includes normal CBC, normal basic metabolic profile, troponin 0.61. CK 190. IMAGING: Chest x-ray shows no acute disease. DIAGNOSTIC DATA: EKG shows sinus rhythm, inferior and lateral T-wave inversion, consider ischemia. IMPRESSION: Non-ST elevation myocardial infarction in a 67-year-old white female with previously no major past medical history. At this time she is chest pain free. She states she has not had any chest discomfort for a couple of days. Cardiac enzymes are suggestive of myocardial infarction. Her EKG is abnormal showing new inferior and lateral T-wave changes compared to an EKG 6 months ago. There is no evidence for congestive heart failure. She may very well have had a significant brittany or tachyarrhythmia causing her loss of consciousness and fall. Overall, I have recommended she undergo cardiac catheterization with possible percutaneous coronary intervention. The nature of these procedures and potential risks including, but not limited to , myocardial infarction, stroke, arrhythmia, bleeding, infection, and renal failure have been outlined to the patient. She agrees to proceed. RECOMMENDATIONS: 1. Cardiac catheterization tomorrow. 2. Initiate beta emy and MATTHEW inhibitor therapy. 3. Check a fasting lipid profile and start statin therapy. 4. Long-term smoking cessation efforts. 5. Agree with heparin drip as started here in the emergency department. Jakub Field MD GHSandee/yanet , 02:05 PM , 02:12 PM MTDD
[2018-03-19] MEDS ORDERED: Haloperidol Inj 5 MG/ML Ampul IV.PUSH PRN (18:53)
[2018-03-19] MEDS ORDERED: LORazepam 1 MG Tablet PO PRN (18:53)
[2018-03-19 20:34] LABS: Troponin I 0.39 ng/mL (0.02-0.05)
[2018-03-19 20:49] LABS: CKMB Percent 2.1 % (0.0-4.0); Creatine Kinase MB 4.3 ng/mL (0.5-3.6)
[2018-03-20] MEDS ORDERED: Heparin 10,000 UNITS/10 ML Vial (for IV use) IV.PUSH PRN ×3 (01:36→06:42)
[2018-03-20] MEDS: Heparin 10,000 UNITS/10 ML Vial (for IV use) IV.PUSH PRN ×2 (01:49→12:39)
[2018-03-20] MEDS: Sodium Chloride 0.9% 2 ML Flush BID IV.FLUSH SCH ×3 (01:49→20:33)
[2018-03-20 04:17] LABS: Baso # (Auto) 0.1 th/mm3 (0.0-0.2); Baso % (Auto) 0.8 % (0.0-2.0); Eos # (Auto) 0.2 th/mm3 (0.0-0.4); Eos % (Auto) 2.3 % (0.0-4.0); Hematocrit 45.9 % (35.0-46.0); Hemoglobin 15.4 gm/dL (11.6-15.3); Lymph # (Auto) 2.5 th/mm3 (1.0-4.8); Lymph % (Auto) 32.1 % (9.0-44.0); Mean Corpuscular HGB Conc 33.6 % (32.0-36.0); Mean Corpuscular Hemoglobin 31.4 pg (27.0-34.0); Mean Corpuscular Volume 93.5 fL (80.0-100.0); Mean Platelet Volume 7.6 fL (7.0-11.0); Mono # (Auto) 0.5 th/mm3 (0.0-0.9); Mono % (Auto) 6.4 % (0.0-8.0); Neut # (Auto) 4.6 th/mm3 (1.8-7.7); Neut % (Auto) 58.4 % (16.0-70.0); Platelet Count 358 th/mm3 (150-450); Red Cell Distribution Width 14.5 % (11.6-17.2); White Blood Count 7.9 th/mm3 (4.0-11.0)
[2018-03-20 04:36] LABS: Alanine Aminotransferase 24 U/L (10-53); Albumin 3.4 g/dL (3.4-5.0); Anion Gap 8 meq/L (5-15); Aspartate Aminotransferase 25 U/L (15-37); Blood Urea Nitrogen 22 mg/dL (7-18); Calcium 8.6 mg/dL (8.5-10.1); Chloride 109 meq/L (98-107); Glomerular Filtration Rate Greater Than 89 mL/min (>89); Glucose,Random 93 mg/dL (74-106); Potassium 3.6 meq/L (3.5-5.1); Sodium 142 meq/L (136-145)
[2018-03-20 04:38] LABS: Alkaline Phosphatase 63 U/L (45-117); Total Protein 6.9 g/dL (6.4-8.2)
--- NOTE | 2018-03-20 10:18 | P.PNIM ---
Subjective Interval history: Patient has slight lethargy related to benzodiazepines. It is reported that she had some confusion last night but this is likely related to delirium tremens. She does not appear to be in delirium tremens, or at least this is controlled this morning. No disorientation. I reviewed the reasons why she was here and she understands this. She recalls the reasons that she came to the hospital. She recalls a previous heart catheterization and understands the procedure and the reasons why it would be for performed at this time. She recognized the elevated troponin enzymes could represent a myocardial infarction and that further myocardial infarction could occur if she has coronary artery stenosis. I feel she is competent for consenting to the procedure of heart catheterization. Medically clear for heart catheterization today if needed. Physical Exam Vital signs: Vital Signs 03/19/18 11:24 03/19/18 12:41 03/19/18 17:32 Temperature Pulse Rate 68 93 H 81 Respiratory Rate 14 18 22 Blood Pressure 134/65 161/85 H 157/63 H Pulse Oximetry 95 94 L 96 03/19/18 19:00 03/19/18 20:00 03/19/18 21:00 Temperature 97.5 F L Pulse Rate 82 80 82 Respiratory Rate 16 Blood Pressure 156/75 H Pulse Oximetry 95 95 03/19/18 22:00 03/19/18 23:00 03/20/18 00:00 Temperature Pulse Rate 74 76 80 Respiratory Rate 16 Blood Pressure 130/73 Pulse Oximetry 93 L 03/20/18 01:00 03/20/18 02:00 03/20/18 03:00 Temperature 97.4 F L Pulse Rate 80 74 72 Respiratory Rate 16 Blood Pressure 124/55 L Pulse Oximetry 97 03/20/18 04:00 03/20/18 05:00 03/20/18 06:00 Temperature Pulse Rate 70 74 70 Respiratory Rate Blood Pressure Pulse Oximetry 03/20/18 09:02 Temperature Pulse Rate Respiratory Rate Blood Pressure Pulse Oximetry 93 L Intake & Output 03/19/18 03/20/18 03/20/18 18:59 06:59 18:59 Intake Total 150 / 150 480 / 480 Balance 150 / 150 480 / 480 Weight 72.121 kg 69.5 kg Intake: IV 150 / 150 NS Inj 1,000 ML @ 75 mls/hr IV. 150 / 150 CONT .[id number] [facility] Rx#:[id number] Oral 480 / 480 Other: # Voids 3 Date of Last Bowel Movement 03/19/18 # Bowel Movements 1 Narrative: GENERAL: NAD, A&Ox3 HEAD: Normocephalic. NECK: Supple, trachea midline. No lymphadenopathy. EYES: No scleral icterus. No injection or drainage. CARDIOVASCULAR: Regular rate and rhythm without murmurs, gallops, or rubs. RESPIRATORY: Breath sounds equal bilaterally. No accessory muscle use. GASTROINTESTINAL: Abdomen soft, non-tender, nondistended. MUSCULOSKELETAL: No cyanosis, or edema. SKIN: Warm and dry. NEURO: No focal neurological deficits. Results - Labs CBC & Chem 7: 03/20/18 03:39 03/20/18 03:39 Laboratory Results - last 24 hr 03/19/18 03/19/18 03/19/18 08:56 09:49 09:49 WBC RBC Hgb Hct MCV MCH MCHC RDW Plt Count MPV Neut % (Auto) Lymph % (Auto) [place] % (Auto) Eos % (Auto) Baso % (Auto) Neut # (Auto) Lymph # (Auto) [place] # (Auto) Eos # (Auto) Baso # (Auto) WBC Differential Differential Comment APTT Sodium Potassium Chloride Carbon Dioxide Anion Gap BUN Creatinine Estimated GFR Random Glucose Calcium Total Bilirubin AST ALT Alkaline Phosphatase Ammonia Total Creatine Kinase CK-MB (CK-2) 5.7 H CK-MB (CK-2) % Troponin I Total Protein Albumin Urine Color Yellow Urine Clarity Clear Urine pH 5.0 Ur Specific [place] 1.012 Urine Protein Negative Urine Glucose (UA) Negative Urine Ketones Negative Urine Occult Blood Moderate H Urine Nitrate Negative Urine Bilirubin Negative Urine Urobilinogen Less than 2 Ur Leukocyte Esterase Negative Urine RBC 17 H Urine WBC 1 Hyaline Casts 1 Urine Mucus Few H Micro UA Comment Culture not ind Ur Microscopic Review Not Reportable Urine Culture Comments Culture not ind Urine Opiates Screen Neg Ur Barbiturates Screen Neg Ur Amphetamines Screen Neg U Benzodiazepines Scrn Pos H Urine Cocaine Screen Neg U Cannabinoids Screen Neg 03/19/18 03/19/18 03/19/18 12:39 12:45 17:45 WBC 9.7 RBC 4.60 Hgb 14.6 Hct 42.9 MCV 93.1 MCH 31.7 MCHC 34.0 RDW 14.1 Plt Count 340 MPV 7.3 Neut % (Auto) Lymph % (Auto) [place] % (Auto) Eos % (Auto) Baso % (Auto) Neut # (Auto) Lymph # (Auto) [place] # (Auto) Eos # (Auto) Baso # (Auto) WBC Differential Differential Comment APTT 34.4 H D Sodium Potassium Chloride Carbon Dioxide Anion Gap BUN Creatinine Estimated GFR Random Glucose Calcium Total Bilirubin AST ALT Alkaline Phosphatase Ammonia Total Creatine Kinase 190 CK-MB (CK-2) CK-MB (CK-2) % Troponin I 0.61 H* Total Protein Albumin Urine Color Urine Clarity Urine pH Ur Specific [place] Urine Protein Urine Glucose (UA) Urine Ketones Urine Occult Blood Urine Nitrate Urine Bilirubin Urine Urobilinogen Ur Leukocyte Esterase Urine RBC Urine WBC Hyaline Casts Urine Mucus Micro UA Comment Ur Microscopic Review Urine Culture Comments Urine Opiates Screen Ur Barbiturates Screen Ur Amphetamines Screen U Benzodiazepines Scrn Urine Cocaine Screen U Cannabinoids Screen 03/19/18 03/19/18 03/20/18 19:55 19:55 00:10 WBC RBC Hgb Hct MCV MCH MCHC RDW Plt Count MPV Neut % (Auto) Lymph % (Auto) [place] % (Auto) Eos % (Auto) Baso % (Auto) Neut # (Auto) Lymph # (Auto) [place] # (Auto) Eos # (Auto) Baso # (Auto) WBC Differential Differential Comment APTT 31.4 H Sodium Potassium Chloride Carbon Dioxide Anion Gap BUN Creatinine Estimated GFR Random Glucose Calcium Total Bilirubin AST ALT Alkaline Phosphatase Ammonia 18 Total Creatine Kinase 203 H CK-MB (CK-2) 4.3 H CK-MB (CK-2) % 2.1 Troponin I 0.39 H D Total Protein Albumin Urine Color Urine Clarity Urine pH Ur Specific [place] Urine Protein Urine Glucose (UA) Urine Ketones Urine Occult Blood Urine Nitrate Urine Bilirubin Urine Urobilinogen Ur Leukocyte Esterase Urine RBC Urine WBC Hyaline Casts Urine Mucus Micro UA Comment Ur Microscopic Review Urine Culture Comments Urine Opiates Screen Ur Barbiturates Screen Ur Amphetamines Screen U Benzodiazepines Scrn Urine Cocaine Screen U Cannabinoids Screen 03/20/18 03/20/18 03:39 03:39 WBC 7.9 RBC 4.90 Hgb 15.4 H Hct 45.9 MCV 93.5 MCH 31.4 MCHC 33.6 RDW 14.5 Plt Count 358 MPV 7.6 Neut % (Auto) 58.4 Lymph % (Auto) 32.1 [place] % (Auto) 6.4 Eos % (Auto) 2.3 Baso % (Auto) 0.8 Neut # (Auto) 4.6 Lymph # (Auto) 2.5 [place] # (Auto) 0.5 Eos # (Auto) 0.2 Baso # (Auto) 0.1 WBC Differential . Differential Comment Auto diff final APTT Sodium 142 Potassium 3.6 Chloride 109 H Carbon Dioxide 25.0 Anion Gap 8 BUN 22 H Creatinine 0.56 Estimated GFR Greater than 89 Random Glucose 93 Calcium 8.6 Total Bilirubin 0.4 AST 25 ALT 24 Alkaline Phosphatase 63 Ammonia Total Creatine Kinase CK-MB (CK-2) CK-MB (CK-2) % Troponin I Total Protein 6.9 D Albumin 3.4 Urine Color Urine Clarity Urine pH Ur Specific [place] Urine Protein Urine Glucose (UA) Urine Ketones Urine Occult Blood Urine Nitrate Urine Bilirubin Urine Urobilinogen Ur Leukocyte Esterase Urine RBC Urine WBC Hyaline Casts Urine Mucus Micro UA Comment Ur Microscopic Review Urine Culture Comments Urine Opiates Screen Ur Barbiturates Screen Ur Amphetamines Screen U Benzodiazepines Scrn Urine Cocaine Screen U Cannabinoids Screen Assessment and Plan - Assessment (1) Troponin level elevated Code(s): R74.8 - Abnormal levels of other serum enzymes Status: Acute (2) Chest pain Code(s): R07.9 - Chest pain, unspecified Status: Acute (3) ST segment changes on electrocardiogram Code(s): R94.31 - Abnormal electrocardiogram [ECG] [EKG] Status: Acute (4) Generalized anxiety disorder Code(s): F41.1 - Generalized anxiety disorder Status: Acute - Plan 67-year-old female admitted with chest pain, EKG changes, and troponin elevation Chest pain Troponin elevation ST segment changes on EKG Follow cardiac enzymes Aspirin daily When necessary oxygen When necessary morphine for pain. When necessary nitroglycerin Follow on telemetry Cardiology consult Heparin drip Continue statin, beta-emy, MATTHEW inhibitor Medically clear for heart catheterization today if needed. General anxiety disorder As needed Xanax DVT prophylaxis Heparin drip (2) Chest pain Qualifiers: Chest pain type: unspecified Qualified Code(s): R07.9 - Chest pain, unspecified
[2018-03-20] MEDS: Sod Chloride 0.9% Inj 1,000 ML IV.CONT SCH ×2 (10:20→17:01)
[2018-03-20] MEDS: Heparin Drip 25,000 UNIT/250 ML BAG IV.CONT PRN (12:34)
[2018-03-20] MEDS: Aspirin 325 MG Tablet PO SCH (12:38)
--- NOTE | 2018-03-20 15:44 | P.PNCA ---
Subjective Interval history: Denies CP, dyspnea, dizziness, palpitations. Slept well. Medications and Allergies Active Medications: Active Medications Al Hydroxide/Mg Hydroxide (Milk Of Marychuy Jaquez) 30 ml PO Q12H PRN PRN Reason: Mild Constipation Aspirin (Aspirin) 325 mg PO DAILY [facility] Last Admin: 03/20/18 12:38 Dose: 325 mg Atorvastatin Calcium (Lipitor) 40 mg PO HS [facility] Last Admin: 03/19/18 20:04 Dose: 40 mg Carvedilol (Coreg) 3.125 mg PO BID [facility] Last Admin: 03/20/18 09:18 Dose: 3.125 mg Diphenhydramine HCl (Benadryl) 50 mg PO [employer] [facility] Stop: 03/23/18 14:14 Enalapril Maleate (Vasotec) 5 mg PO DAILY [facility] Last Admin: 03/20/18 09:18 Dose: 5 mg Fentanyl Citrate (Fentanyl Inj) 50 mcg IV.PUSH [employer] [facility] Stop: 03/23/18 14:14 Flumazenil (Romazecon Inj) 0.2 mg IV.PUSH Q1M PRN PRN Reason: OVERSEDATION Haloperidol Lactate (Haldol Inj) 1 mg IV.PUSH Q15M PRN PRN Reason: for severe agitation Heparin Sodium (Porcine) (Heparin Inj) 2,500 units IV.PUSH UNSCH PRN PRN Reason: aPTT 25-39 Last Admin: 03/20/18 12:39 Dose: 2,500 units Heparin Sodium (Porcine) (Heparin Inj) 5,000 units IV.PUSH UNSCH PRN PRN Reason: aPTT < 25 Heparin Sodium/Dextrose (Heparin/D5w 25,000 U/250 Ml) 25,000 unit in 250 mls @ 0 mls/hr IV.CONT TITRATE PRN; Protocol PRN Reason: Per Protocol Last Admin: 03/20/18 12:34 Dose: 1,100 units/hr, 11 mls/hr Sodium Chloride (Ns Inj) 1,000 mls @ 75 mls/hr IV.CONT .[id number] [facility] Last Admin: 03/20/18 10:20 Dose: Not Given Lorazepam (Ativan) 1 mg PO Q4H PRN PRN Reason: for CIWA 8-10 Lorazepam (Ativan) 2 mg PO Q2H PRN PRN Reason: for CIWA 11-14 Last Admin: 03/20/18 14:10 Dose: 2 mg Lorazepam (Ativan Inj) 2 mg IV.PUSH Q2H PRN PRN Reason: for CIWA 11-14 Lorazepam (Ativan Inj) 2 mg IV.PUSH Q1H PRN PRN Reason: for CIWA 15-20 Lorazepam (Ativan Inj) 2 mg IV.PUSH Q15M PRN PRN Reason: for CIWA > 20 Lorazepam (Ativan Inj) 1 mg IV.PUSH Q4H PRN PRN Reason: for CIWA 8-10 Midazolam HCl (Versed Inj) 1 mg IV.PUSH [employer] [facility] Stop: 03/23/18 14:14 Morphine Sulfate (Morphine Inj) 2 mg IV.PUSH Q4H PRN PRN Reason: Pain 3 to 6 Morphine Sulfate (Morphine Inj) 4 mg IV.PUSH Q4H PRN PRN Reason: Pain 7 to 10 Nitroglycerin (Nitrostat Sl) 0.4 mg SL Q5M PRN PRN Reason: CHEST PAIN Ondansetron HCl (Zofran Inj) 4 mg IV.PUSH Q6H PRN PRN Reason: NAUSEA OR VOMITING Sodium Chloride (Ns Flush) 2 ml IV.FLUSH BID [facility] Last Admin: 03/20/18 10:20 Dose: 2 ml Sodium Chloride (Ns Flush) 2 ml IV.FLUSH PRN PRN PRN Reason: FLUSH AFTER USING IV ACCESS Allergies Allergy/AdvReac Type Severity Reaction Status Date / Time penicillin G Allergy Unknown Blister Verified 03/19/18 08:39 Home Medications Medication Instructions Recorded Confirmed Type alprazolam 1 mg PO BID PRN 03/19/18 03/19/18 History Physical Exam Vital signs: Vital Signs 03/19/18 17:32 03/19/18 19:00 03/19/18 20:00 Temperature 97.5 F L Pulse Rate 81 82 80 Respiratory Rate 22 16 Blood Pressure 157/63 H 156/75 H Pulse Oximetry 96 95 95 03/19/18 21:00 03/19/18 22:00 03/19/18 23:00 Temperature Pulse Rate 82 74 76 Respiratory Rate 16 Blood Pressure 130/73 Pulse Oximetry 93 L 03/20/18 00:00 03/20/18 01:00 03/20/18 02:00 Temperature Pulse Rate 80 80 74 Respiratory Rate Blood Pressure Pulse Oximetry 03/20/18 03:00 03/20/18 04:00 03/20/18 05:00 Temperature 97.4 F L Pulse Rate 72 70 74 Respiratory Rate 16 Blood Pressure 124/55 L Pulse Oximetry 97 03/20/18 06:00 03/20/18 07:00 03/20/18 08:00 Temperature 97.6 F Pulse Rate 70 69 73 Respiratory Rate 18 Blood Pressure 112/67 Pulse Oximetry 03/20/18 09:00 03/20/18 09:02 03/20/18 10:00 Temperature Pulse Rate 74 74 Respiratory Rate Blood Pressure Pulse Oximetry 93 L 03/20/18 11:00 03/20/18 12:00 03/20/18 13:00 Temperature 97.4 F L Pulse Rate 73 68 82 Respiratory Rate 16 Blood Pressure 118/56 L Pulse Oximetry 92 L Intake & Output 03/19/18 03/20/18 03/20/18 18:59 06:59 18:59 Intake Total 150 / 150 480 / 480 250 / 250 Balance 150 / 150 480 / 480 250 / 250 Weight 72.121 kg 69.5 kg Intake: IV 150 / 150 250 / 250 Heparin/D5W 25,000 U/250 mL 25, 250 / 250 000 unit In 250 ml @ Per Protocol IV.CONT TITRATE PRN Rx #:[id number] NS Inj 1,000 ML @ 75 mls/hr IV. 150 / 150 CONT .[id number] [facility] Rx#:[id number] Oral 480 / 480 Other: # Voids 3 Date of Last Bowel Movement 03/19/18 03/19/18 # Bowel Movements 1 - Constitutional no acute distress - Routine Neck Exam Absent: JVD - Routine Respiratory Exam Present: decreased breath sounds - Routine Cardiovascular Exam Present: RRR, S1, S2. Absent: murmur, gallop - Routine Abdominal Exam Present: soft, normoactive bowel sounds. Absent: tenderness, organomegaly - Routine Extremities Exam Absent: cyanosis, clubbing, edema Results 03/20/18 03:39 03/20/18 03:39 Cardiac Enzymes 03/19/18 03/19/18 03/19/18 Range/Units 08:56 08:56 12:39 AST 27 Cancelled (15-37) U/L CK-MB (CK-2) 5.7 H (0.5-3.6) ng/mL Troponin I 0.57 H Cancelled 0.61 H* (0.02-0.05) ng/mL 03/19/18 03/20/18 Range/Units 19:55 03:39 AST 25 (15-37) U/L CK-MB (CK-2) 4.3 H (0.5-3.6) ng/mL Troponin I 0.39 H D (0.02-0.05) ng/mL Coagulation 03/19/18 03/19/18 03/20/18 Range/Units 08:56 17:45 00:10 PT 10.5 (9.8-11.6) sec APTT 24.5 34.4 H D 31.4 H (24.3-30.1) sec 03/20/18 Range/Units 10:45 PT (9.8-11.6) sec APTT 39.4 H D (24.3-30.1) sec CBC 03/19/18 03/19/18 03/20/18 Range/Units 08:56 12:45 03:39 WBC 8.5 9.7 7.9 (4.0-11.0) th/mm3 RBC 4.51 4.60 4.90 (4.00-5.30) mil/mm3 Hgb 14.1 14.6 15.4 H (11.6-15.3) gm/dL Hct 42.3 42.9 45.9 (35.0-46.0) % Plt Count 373 340 358 (150-450) th/mm3 Neut # (Auto) 5.6 4.6 (1.8-7.7) th/mm3 Lymph # (Auto) 2.1 2.5 (1.0-4.8) th/mm3 [place] # (Auto) 0.6 0.5 (0.0-0.9) th/mm3 Eos # (Auto) 0.1 0.2 (0.0-0.4) th/mm3 Baso # (Auto) 0.0 0.1 (0.0-0.2) th/mm3 Comprehensive Metabolic Panel 03/19/18 03/19/18 03/20/18 Range/Units 08:56 08:56 03:39 Sodium 143 Cancelled 142 (136-145) meq/L Potassium 3.9 Cancelled 3.6 (3.5-5.1) meq/L Chloride 112 H Cancelled 109 H (98-107) meq/L Carbon Dioxide 22.4 Cancelled 25.0 (21.0-32.0) meq/L BUN 21 H Cancelled 22 H (7-18) mg/dL Creatinine 0.64 Cancelled 0.56 (0.50-1.00) mg/dL Calcium 8.4 L Cancelled 8.6 (8.5-10.1) mg/dL AST 27 Cancelled 25 (15-37) U/L ALT 21 Cancelled 24 (10-53) U/L Alkaline Phosphatase 55 Cancelled 63 (45-117) U/L Total Protein 6.2 L Cancelled 6.9 D (6.4-8.2) g/dL Albumin 3.2 L Cancelled 3.4 (3.4-5.0) g/dL Intake and Output 03/20/18 03/20/18 03/20/18 06:59 14:59 22:59 Intake Total 480 / 480 250 / 250 Balance 480 / 480 250 / 250 Intake: IV 250 / 250 Heparin/D5W 25,000 U/250 mL 25, 250 / 250 000 unit In 250 ml @ Per Protocol IV.CONT TITRATE PRN Rx #:[id number] Oral 480 / 480 Other: # Voids 3 Date of Last Bowel Movement 03/19/18 03/19/18 # Bowel Movements 1 Weight 69.5 kg - Imaging and Cardiology Imaging: Impressions Head CT 03/19/18 08:51 CONCLUSION: 1. Stable white matter disease. . Lumbar Spine X-Ray 03/19/18 08:51 CONCLUSION: Moderate to severe degenerative changes. Atherosclerosis. Shoulder X-Ray 03/19/18 08:51 CONCLUSION: No evidence of recent bony injury. Chest X-Ray 03/19/18 08:52 CONCLUSION: 1. No acute abnormality. Assessment and Plan - Assessment (1) Non-ST elevated myocardial infarction Code(s): I21.4 - Non-ST elevation (NSTEMI) myocardial infarction Status: Acute Plan: Stable overnight. No further CP. No definite CHF/arrhythmias. Patient declining heart cath at this time. RECOMMEND continue beta emy, MATTHEW-I, aspirin, can stop heparin drip, increase ambulation, continue statin and check fasting lipid profile in am. - Plan Code Status: full code Discussed Condition With: patient
--- NOTE | 2018-03-20 19:59 | ECG ---
Date Performed: 03/19/2018 Time Performed: 10:22:33 PTAGE: 67 years EKG: Sinus rhythm WITH OCCASIONAL SUPRAVENTRICULAR PREMATURE COMPLEXES BORDERLINE LEFT AXIS DEVIATION MODERATE T-WAVE ABNORMALITY, CONSIDER LATERAL ISCHEMIA MODERATE T-WAVE ABNORMALITY, CONSIDER INFERIOR ISCHEMIA Since previous tracing, no significant change noted ABNORMAL ECG PREVIOUS TRACING : 09/07/2017 16.53 DOCTOR: Jon Haley Interpretating Date/Time 03/20/2018 19:57:03
--- NOTE | 2018-03-20 19:59 | ECG ---
Date Performed: 03/19/2018 Time Performed: 15:05:17 PTAGE: 67 years EKG: JUNCTIONAL RHYTHM MODERATE T-WAVE ABNORMALITY, CONSIDER LATERAL ISCHEMIA MODERATE T-WAVE AB NORMALITY, CONSIDER INFERIOR ISCHEMIA Since previous tracing, no significant change noted ABNORMAL EC G PREVIOUS TRACING : 03/19/2018 10.22 DOCTOR: Jon Haley Interpretating Date/Time 03/20/2018 19:57:15
[2018-03-21] MEDS: Sod Chloride 0.9% Inj 1,000 ML IV.CONT SCH (02:46)
[2018-03-21 04:18] LABS: Baso % (Auto) 0.5 % (0.0-2.0); Eos # (Auto) 0.3 th/mm3 (0.0-0.4); Eos % (Auto) 3.7 % (0.0-4.0); Hematocrit 42.7 % (35.0-46.0); Hemoglobin 14.1 gm/dL (11.6-15.3); Lymph # (Auto) 2.5 th/mm3 (1.0-4.8); Mean Corpuscular HGB Conc 33.1 % (32.0-36.0); Mean Corpuscular Hemoglobin 31.2 pg (27.0-34.0); Mean Corpuscular Volume 94.3 fL (80.0-100.0); Mean Platelet Volume 7.4 fL (7.0-11.0); Mono # (Auto) 0.5 th/mm3 (0.0-0.9); Mono % (Auto) 7.1 % (0.0-8.0); Neut # (Auto) 3.7 th/mm3 (1.8-7.7); Neut % (Auto) 52.7 % (16.0-70.0); Platelet Count 357 th/mm3 (150-450); Red Blood Count 4.54 mil/mm3 (4.00-5.30); Red Cell Distribution Width 14.3 % (11.6-17.2); White Blood Count 7.1 th/mm3 (4.0-11.0)
[2018-03-21 04:44] LABS: Alanine Aminotransferase 20 U/L (10-53); Anion Gap 8 meq/L (5-15); Aspartate Aminotransferase 17 U/L (15-37); Blood Urea Nitrogen 16 mg/dL (7-18); Calcium 8.4 mg/dL (8.5-10.1); Carbon Dioxide 23.4 meq/L (21.0-32.0); Chloride 113 meq/L (98-107); Cholesterol 228 mg/dL (120-200); Glomerular Filtration Rate Greater Than 89 mL/min (>89); Glucose,Random 80 mg/dL (74-106); Potassium 3.7 meq/L (3.5-5.1); Sodium 144 meq/L (136-145); Triglycerides 223 mg/dL (42-150)
[2018-03-21 04:46] LABS: Alkaline Phosphatase 51 U/L (45-117); Chol/HDL Ratio 5.95 Ratio; HDL Cholesterol 38.3 mg/dL (40.0-60.0); LDL Cholesterol,Calculated 145 mg/dL (0-99); Total Protein 5.9 g/dL (6.4-8.2)
--- NOTE | 2018-03-21 08:28 | P.PNCA ---
Subjective Interval history: Denies CP, dyspnea, dizziness, palpitations. Slept well. Very anxious to go home. Medications and Allergies Active Medications: Active Medications Al Hydroxide/Mg Hydroxide (Milk Of Marychuy Jaquez) 30 ml PO Q12H PRN PRN Reason: Mild Constipation Aspirin (Aspirin) 325 mg PO DAILY [facility] Last Admin: 03/20/18 12:38 Dose: 325 mg Atorvastatin Calcium (Lipitor) 40 mg PO HS [facility] Last Admin: 03/20/18 20:33 Dose: 40 mg Carvedilol (Coreg) 3.125 mg PO BID [facility] Last Admin: 03/20/18 20:33 Dose: 3.125 mg Diphenhydramine HCl (Benadryl) 50 mg PO QUALITY ASSURANCE QA LAB TECHNICIAN [facility] Stop: 03/23/18 14:14 Enalapril Maleate (Vasotec) 5 mg PO DAILY [facility] Last Admin: 03/20/18 09:18 Dose: 5 mg Fentanyl Citrate (Fentanyl Inj) 50 mcg IV.PUSH QUALITY ASSURANCE QA LAB TECHNICIAN [facility] Stop: 03/23/18 14:14 Flumazenil (Romazecon Inj) 0.2 mg IV.PUSH Q1M PRN PRN Reason: OVERSEDATION Haloperidol Lactate (Haldol Inj) 1 mg IV.PUSH Q15M PRN PRN Reason: for severe agitation Heparin Sodium (Porcine) (Heparin Inj) 2,500 units IV.PUSH UNSCH PRN PRN Reason: aPTT 25-39 Last Admin: 03/20/18 12:39 Dose: 2,500 units Heparin Sodium (Porcine) (Heparin Inj) 5,000 units IV.PUSH UNSCH PRN PRN Reason: aPTT < 25 Heparin Sodium/Dextrose (Heparin/D5w 25,000 U/250 Ml) 25,000 unit in 250 mls @ 0 mls/hr IV.CONT TITRATE PRN; Protocol PRN Reason: Per Protocol Last Titration: 03/20/18 14:00 Dose: Infused Sodium Chloride (Ns Inj) 1,000 mls @ 75 mls/hr IV.CONT .[id number] [facility] Last Admin: 03/21/18 02:46 Dose: 75 mls/hr Lorazepam (Ativan) 1 mg PO Q4H PRN PRN Reason: for CIWA 8-10 Lorazepam (Ativan) 2 mg PO Q2H PRN PRN Reason: for CIWA 11-14 Last Admin: 03/21/18 03:03 Dose: 2 mg Lorazepam (Ativan Inj) 2 mg IV.PUSH Q2H PRN PRN Reason: for CIWA 11-14 Lorazepam (Ativan Inj) 2 mg IV.PUSH Q1H PRN PRN Reason: for CIWA 15-20 Lorazepam (Ativan Inj) 2 mg IV.PUSH Q15M PRN PRN Reason: for CIWA > 20 Lorazepam (Ativan Inj) 1 mg IV.PUSH Q4H PRN PRN Reason: for CIWA 8-10 Midazolam HCl (Versed Inj) 1 mg IV.PUSH QUALITY ASSURANCE QA LAB TECHNICIAN [facility] Stop: 03/23/18 14:14 Morphine Sulfate (Morphine Inj) 2 mg IV.PUSH Q4H PRN PRN Reason: Pain 3 to 6 Morphine Sulfate (Morphine Inj) 4 mg IV.PUSH Q4H PRN PRN Reason: Pain 7 to 10 Nitroglycerin (Nitrostat Sl) 0.4 mg SL Q5M PRN PRN Reason: CHEST PAIN Ondansetron HCl (Zofran Inj) 4 mg IV.PUSH Q6H PRN PRN Reason: NAUSEA OR VOMITING Sodium Chloride (Ns Flush) 2 ml IV.FLUSH BID [facility] Last Admin: 03/20/18 20:33 Dose: Not Given Sodium Chloride (Ns Flush) 2 ml IV.FLUSH PRN PRN PRN Reason: FLUSH AFTER USING IV ACCESS Allergies Allergy/AdvReac Type Severity Reaction Status Date / Time penicillin G Allergy Unknown Blister Verified 03/19/18 08:39 Home Medications Medication Instructions Recorded Confirmed Type alprazolam 1 mg PO BID PRN 03/19/18 03/19/18 History Physical Exam Vital signs: Vital Signs 03/20/18 09:00 03/20/18 09:02 03/20/18 10:00 Temperature Pulse Rate 74 74 Respiratory Rate Blood Pressure Pulse Oximetry 93 L 03/20/18 11:00 03/20/18 12:00 03/20/18 13:00 Temperature 97.4 F L Pulse Rate 73 68 82 Respiratory Rate 16 Blood Pressure 118/56 L Pulse Oximetry 92 L 03/20/18 14:00 03/20/18 15:00 03/20/18 16:00 Temperature 97.9 F Pulse Rate 72 76 81 Respiratory Rate 18 Blood Pressure 117/55 L Pulse Oximetry 96 03/20/18 17:00 03/20/18 17:46 03/20/18 18:00 Temperature Pulse Rate 75 76 Respiratory Rate Blood Pressure Pulse Oximetry 96 03/20/18 19:00 03/20/18 20:00 03/20/18 21:00 Temperature 97.6 F Pulse Rate 90 82 76 Respiratory Rate 16 Blood Pressure 102/54 L Pulse Oximetry 98 98 03/20/18 22:00 03/20/18 23:00 03/21/18 00:00 Temperature 97.4 F L Pulse Rate 80 74 74 Respiratory Rate 16 Blood Pressure 109/54 L Pulse Oximetry 98 03/21/18 01:00 03/21/18 02:00 03/21/18 02:48 Temperature 97.5 F L Pulse Rate 80 80 72 Respiratory Rate 16 Blood Pressure 115/56 L Pulse Oximetry 100 03/21/18 03:00 03/21/18 04:00 03/21/18 05:00 Temperature Pulse Rate 73 80 70 Respiratory Rate Blood Pressure Pulse Oximetry 03/21/18 06:00 03/21/18 07:00 Temperature 97.8 F Pulse Rate 68 81 Respiratory Rate 17 Blood Pressure 143/90 H Pulse Oximetry 95 Intake & Output 03/20/18 03/21/18 03/21/18 18:59 06:59 18:59 Intake Total 980 / 980 1600 / 1600 Output Total 500 / 500 350 / 350 Balance 480 / 480 1250 / 1250 Weight 71 kg Intake: IV 500 / 500 1000 / 1000 Heparin/D5W 25,000 U/250 mL 25, 500 / 500 000 unit In 250 ml @ Per Protocol IV.CONT TITRATE PRN Rx #:[id number] NS Inj 1,000 ML @ 75 mls/hr IV. 1000 / 1000 CONT .[id number] [facility] Rx#:[id number] Oral 480 / 480 600 / 600 Output: Urine 500 / 500 350 / 350 Other: # Voids 2 Date of Last Bowel Movement 03/20/18 03/21/18 # Bowel Movements 2 2 - Constitutional no acute distress - Routine Neck Exam Absent: JVD - Routine Respiratory Exam Present: decreased breath sounds - Routine Cardiovascular Exam Present: RRR, S1, S2. Absent: murmur, gallop - Routine Abdominal Exam Present: soft, normoactive bowel sounds. Absent: tenderness, organomegaly - Routine Extremities Exam Absent: cyanosis, clubbing, edema Results 03/21/18 03:50 03/21/18 03:50 Cardiac Enzymes 03/19/18 03/19/18 03/19/18 Range/Units 08:56 08:56 12:39 AST 27 Cancelled (15-37) U/L CK-MB (CK-2) 5.7 H (0.5-3.6) ng/mL Troponin I 0.57 H Cancelled 0.61 H* (0.02-0.05) ng/mL 03/19/18 03/20/18 03/21/18 Range/Units 19:55 03:39 03:50 AST 25 17 (15-37) U/L CK-MB (CK-2) 4.3 H (0.5-3.6) ng/mL Troponin I 0.39 H D (0.02-0.05) ng/mL Coagulation 03/19/18 03/19/18 03/20/18 Range/Units 08:56 17:45 00:10 PT 10.5 (9.8-11.6) sec APTT 24.5 34.4 H D 31.4 H (24.3-30.1) sec 03/20/18 03/20/18 03/21/18 Range/Units 10:45 17:55 03:13 PT (9.8-11.6) sec APTT 39.4 H D 48.9 H D 38.4 H D (24.3-30.1) sec Lipids 03/21/18 Range/Units 03:50 Triglycerides 223 H (42-150) mg/dL Cholesterol 228 H (120-200) mg/dL HDL Cholesterol 38.3 L (40.0-60.0) mg/dL Cholesterol/HDL Ratio 5.95 Ratio CBC 03/19/18 03/19/18 03/20/18 Range/Units 08:56 12:45 03:39 WBC 8.5 9.7 7.9 (4.0-11.0) th/mm3 RBC 4.51 4.60 4.90 (4.00-5.30) mil/mm3 Hgb 14.1 14.6 15.4 H (11.6-15.3) gm/dL Hct 42.3 42.9 45.9 (35.0-46.0) % Plt Count 373 340 358 (150-450) th/mm3 Neut # (Auto) 5.6 4.6 (1.8-7.7) th/mm3 Lymph # (Auto) 2.1 2.5 (1.0-4.8) th/mm3 [place] # (Auto) 0.6 0.5 (0.0-0.9) th/mm3 Eos # (Auto) 0.1 0.2 (0.0-0.4) th/mm3 Baso # (Auto) 0.0 0.1 (0.0-0.2) th/mm3 03/21/18 Range/Units 03:50 WBC 7.1 (4.0-11.0) th/mm3 RBC 4.54 (4.00-5.30) mil/mm3 Hgb 14.1 (11.6-15.3) gm/dL Hct 42.7 (35.0-46.0) % Plt Count 357 (150-450) th/mm3 Neut # (Auto) 3.7 (1.8-7.7) th/mm3 Lymph # (Auto) 2.5 (1.0-4.8) th/mm3 [place] # (Auto) 0.5 (0.0-0.9) th/mm3 Eos # (Auto) 0.3 (0.0-0.4) th/mm3 Baso # (Auto) 0.0 (0.0-0.2) th/mm3 Comprehensive Metabolic Panel 03/19/18 03/19/18 03/20/18 Range/Units 08:56 08:56 03:39 Sodium 143 Cancelled 142 (136-145) meq/L Potassium 3.9 Cancelled 3.6 (3.5-5.1) meq/L Chloride 112 H Cancelled 109 H (98-107) meq/L Carbon Dioxide 22.4 Cancelled 25.0 (21.0-32.0) meq/L BUN 21 H Cancelled 22 H (7-18) mg/dL Creatinine 0.64 Cancelled 0.56 (0.50-1.00) mg/dL Calcium 8.4 L Cancelled 8.6 (8.5-10.1) mg/dL AST 27 Cancelled 25 (15-37) U/L ALT 21 Cancelled 24 (10-53) U/L Alkaline Phosphatase 55 Cancelled 63 (45-117) U/L Total Protein 6.2 L Cancelled 6.9 D (6.4-8.2) g/dL Albumin 3.2 L Cancelled 3.4 (3.4-5.0) g/dL 03/21/18 Range/Units 03:50 Sodium 144 (136-145) meq/L Potassium 3.7 (3.5-5.1) meq/L Chloride 113 H (98-107) meq/L Carbon Dioxide 23.4 (21.0-32.0) meq/L BUN 16 (7-18) mg/dL Creatinine 0.53 (0.50-1.00) mg/dL Calcium 8.4 L (8.5-10.1) mg/dL AST 17 (15-37) U/L ALT 20 (10-53) U/L Alkaline Phosphatase 51 (45-117) U/L Total Protein 5.9 L D (6.4-8.2) g/dL Albumin 3.0 L (3.4-5.0) g/dL Intake and Output 03/20/18 03/21/18 03/21/18 22:59 06:59 14:59 Intake Total 480 / 480 1600 / 1600 Output Total 500 / 500 350 / 350 Balance -20 / -20 1250 / 1250 Intake: IV 1000 / 1000 NS Inj 1,000 ML @ 75 mls/hr IV. 1000 / 1000 CONT .[id number] [facility] Rx#:[id number] Oral 480 / 480 600 / 600 Output: Urine 500 / 500 350 / 350 Other: # Voids 2 Date of Last Bowel Movement 03/20/18 03/21/18 # Bowel Movements 2 2 Weight 71 kg - Imaging and Cardiology Imaging: Impressions Head CT 03/19/18 08:51 CONCLUSION: 1. Stable white matter disease. . Lumbar Spine X-Ray 03/19/18 08:51 CONCLUSION: Moderate to severe degenerative changes. Atherosclerosis. Shoulder X-Ray 03/19/18 08:51 CONCLUSION: No evidence of recent bony injury. Chest X-Ray 03/19/18 08:52 CONCLUSION: 1. No acute abnormality. Assessment and Plan - Assessment (1) Non-ST elevated myocardial infarction Code(s): I21.4 - Non-ST elevation (NSTEMI) myocardial infarction Status: Acute Plan: Stable overnight. No further CP. No definite CHF/arrhythmias. Patient adamantly declining heart cath at this time. Risks of recurrent PA emphasized to patient. RECOMMEND continue beta emy, MATTHEW-I, aspirin, statin. Discharge home, 3 week f/u. (2) Hyperlipidemia Code(s): E78.5 - Hyperlipidemia, unspecified Status: Chronic Plan: Very suboptimal lipid profile. Increase atorvastatin to 80 mg daily. - Plan Code Status: full code Discussed Condition With: patient (2) Hyperlipidemia Qualifiers: Hyperlipidemia type: mixed hyperlipidemia Qualified Code(s): E78.2 - Mixed hyperlipidemia
[2018-03-21] MEDS: Aspirin 325 MG Tablet PO SCH (09:29)
[2018-03-21] MEDS: Sodium Chloride 0.9% 2 ML Flush BID IV.FLUSH SCH (09:30)
--- NOTE | 2018-03-21 11:28 | P.PN ---
Subjective Interval history: no comoplains wanting to go home states she lives by herself but has a walker and friends that comes and checks on her Physical Exam Vital signs: Vital Signs 03/20/18 12:00 03/20/18 13:00 03/20/18 14:00 Temperature Pulse Rate 68 82 72 Respiratory Rate Blood Pressure Pulse Oximetry 03/20/18 15:00 03/20/18 16:00 03/20/18 17:00 Temperature 97.9 F Pulse Rate 76 81 75 Respiratory Rate 18 Blood Pressure 117/55 L Pulse Oximetry 96 03/20/18 17:46 03/20/18 18:00 03/20/18 19:00 Temperature 97.6 F Pulse Rate 76 90 Respiratory Rate 16 Blood Pressure 102/54 L Pulse Oximetry 96 98 03/20/18 20:00 03/20/18 21:00 03/20/18 22:00 Temperature Pulse Rate 82 76 80 Respiratory Rate Blood Pressure Pulse Oximetry 98 03/20/18 23:00 03/21/18 00:00 03/21/18 01:00 Temperature 97.4 F L Pulse Rate 74 74 80 Respiratory Rate 16 Blood Pressure 109/54 L Pulse Oximetry 98 03/21/18 02:00 03/21/18 02:48 03/21/18 03:00 Temperature 97.5 F L Pulse Rate 80 72 73 Respiratory Rate 16 Blood Pressure 115/56 L Pulse Oximetry 100 03/21/18 04:00 03/21/18 05:00 03/21/18 06:00 Temperature Pulse Rate 80 70 68 Respiratory Rate Blood Pressure Pulse Oximetry 03/21/18 07:00 03/21/18 08:00 03/21/18 09:00 Temperature 97.8 F Pulse Rate 70 70 74 Respiratory Rate 17 Blood Pressure 143/90 H Pulse Oximetry 95 03/21/18 10:00 Temperature Pulse Rate 94 H Respiratory Rate Blood Pressure Pulse Oximetry Intake & Output 03/20/18 03/21/18 03/21/18 18:59 06:59 18:59 Intake Total 980 / 980 1600 / 1600 Output Total 500 / 500 350 / 350 Balance 480 / 480 1250 / 1250 Weight 71 kg Intake: IV 500 / 500 1000 / 1000 Heparin/D5W 25,000 U/250 mL 25, 500 / 500 000 unit In 250 ml @ Per Protocol IV.CONT TITRATE PRN Rx #:[id number] NS Inj 1,000 ML @ 75 mls/hr IV. 1000 / 1000 CONT .[id number] [facility] Rx#:[id number] Oral 480 / 480 600 / 600 Output: Urine 500 / 500 350 / 350 Other: # Voids 2 Date of Last Bowel Movement 03/20/18 03/21/18 03/21/18 # Bowel Movements 2 2 Narrative: GENERAL: NAD, A&Ox3 HEAD: Normocephalic. NECK: Supple, trachea midline. No lymphadenopathy. EYES: No scleral icterus. No injection or drainage. CARDIOVASCULAR: Regular rate and rhythm without murmurs, gallops, or rubs. RESPIRATORY: Breath sounds equal bilaterally. No accessory muscle use. GASTROINTESTINAL: Abdomen soft, non-tender, nondistended. MUSCULOSKELETAL: No cyanosis, or edema. SKIN: Warm and dry. NEURO: No focal neurological deficits. Results - Labs CBC & Chem 7: 03/21/18 03:50 03/21/18 03:50 Laboratory Results - last 24 hr 03/20/18 03/21/18 03/21/18 17:55 03:13 03:50 WBC RBC Hgb Hct MCV MCH MCHC RDW Plt Count MPV Neut % (Auto) Lymph % (Auto) [place] % (Auto) Eos % (Auto) Baso % (Auto) Neut # (Auto) Lymph # (Auto) [place] # (Auto) Eos # (Auto) Baso # (Auto) WBC Differential Differential Comment APTT 48.9 H D 38.4 H D Sodium 144 Potassium 3.7 Chloride 113 H Carbon Dioxide 23.4 Anion Gap 8 BUN 16 Creatinine 0.53 Estimated GFR Greater than 89 Random Glucose 80 Calcium 8.4 L Total Bilirubin 0.3 AST 17 ALT 20 Alkaline Phosphatase 51 Total Protein 5.9 L D Albumin 3.0 L Triglycerides 223 H Cholesterol 228 H LDL Cholesterol, Calc 145 H HDL Cholesterol 38.3 L Cholesterol/HDL Ratio 5.95 03/21/18 03:50 WBC 7.1 RBC 4.54 Hgb 14.1 Hct 42.7 MCV 94.3 MCH 31.2 MCHC 33.1 RDW 14.3 Plt Count 357 MPV 7.4 Neut % (Auto) 52.7 Lymph % (Auto) 36.0 [place] % (Auto) 7.1 Eos % (Auto) 3.7 Baso % (Auto) 0.5 Neut # (Auto) 3.7 Lymph # (Auto) 2.5 [place] # (Auto) 0.5 Eos # (Auto) 0.3 Baso # (Auto) 0.0 WBC Differential . Differential Comment Auto diff final APTT Sodium Potassium Chloride Carbon Dioxide Anion Gap BUN Creatinine Estimated GFR Random Glucose Calcium Total Bilirubin AST ALT Alkaline Phosphatase Total Protein Albumin Triglycerides Cholesterol LDL Cholesterol, Calc HDL Cholesterol Cholesterol/HDL Ratio Assessment and Plan - Assessment (1) Troponin level elevated Code(s): R74.8 - Abnormal levels of other serum enzymes Status: Acute (2) Chest pain Code(s): R07.9 - Chest pain, unspecified Status: Acute (3) ST segment changes on electrocardiogram Code(s): R94.31 - Abnormal electrocardiogram [ECG] [EKG] Status: Acute (4) Generalized anxiety disorder Code(s): F41.1 - Generalized anxiety disorder Status: Acute - Plan 67-year-old female admitted with chest pain, EKG changes, and troponin elevation Chest pain Troponin elevation ST segment changes on EKG Follow cardiac enzymes Aspirin daily When necessary oxygen When necessary morphine for pain. When necessary nitroglycerin Follow on telemetry Cardiology consult Heparin drip Continue statin, beta-emy, MATTHEW inhibitor Medically clear for heart catheterization today if needed. General anxiety disorder As needed Xanax DVT prophylaxis Heparin drip (2) Chest pain Qualifiers: Chest pain type: unspecified Qualified Code(s): R07.9 - Chest pain, unspecified
--- NOTE | 2018-03-21 11:36 | P.DCO ---
- Diagnosis (1) Troponin level elevated Status: Acute (2) Chest pain Status: Acute (3) ST segment changes on electrocardiogram Status: Acute (4) Generalized anxiety disorder Status: Acute - Home Health Nursing Order: Medical education, Signs/symptoms of disease process, Medication education-adverse effect, Nursing assessment with vital signs - Traffic Signal Technician Order: To evaluate: Living conditions/environment, Support services Order: To provide: Community services - Case Management Consult Yes - Certification I have seen patient Ashlie Brewer on 03/21/18. My clinical findings support the need for the requested home health care services because: Medication compliance is questionable, Need for psychosocial assistance I certify that my clinical findings support that this patient is homebound because: Need for psychosocial assistance, Poor cardiac reserve (S/P NSTEMI) (2) Chest pain Qualifiers: Chest pain type: unspecified Qualified Code(s): R07.9 - Chest pain, unspecified
--- NOTE | 2018-03-21 16:41 | ECHRPT ---
Indication: CARDIOMYOPATHY CONCLUSIONS Normal left ventricular size. Wall thickness is measured at the upper limits of normal. The left ventricular systolic function is low normal with an estimated ejection fraction in the rang e of 50- 55%. Mild thickening of the mitral valve leaflets. Trace mitral valve regurgitation. Mild thickening of the aortic valve leaflets. The estimated pulmonary arterial pressure is 40 mmHg. Trivial pericardial effusion. BP: / HR: Rhythm: MEASUREMENTS (Male / Female) Normal Values Technical Quality: 2D ECHO LV Diastolic Diameter PLAX 4.8 cm 4.2 - 5.9 / 3.9 - 5.3 cm LV Systolic Diameter PLAX 3.6 cm IVS Diastolic Thickness 1.1 cm 0.6 - 1.0 / 0.6 - 0.9 cm LVPW Diastolic Thickness 1.3 cm 0.6 - 1.0 / 0.6 - 0.9 cm LV Relative Wall Thickness 0.5 RV Internal Dim ED PLAX 2.9 cm LVOT Diameter 2.0 cm Aortic Root Diameter 2.8 cm LA Systolic Diameter LX 3.6 cm 3.0 - 4.0 / 2.7 - 3.8 cm LV Ejection Fraction MOD 4C 51.7 % LV Ejection Fraction 4C AL 53.7 % M-MODE Aortic Root Diameter MM 3.7 cm LA Systolic Diameter MM 4.7 cm LA Ao Ratio MM 1.3 AV Cusp Separation MM 2.2 cm DOPPLER AV Peak Velocity 159.0 cm/s AV Peak Gradient 10.1 mmHg AI Peak Velocity 238.0 cm/s AI Peak Gradient 22.7 mmHg AI Pressure Half Time 816.0 ms Mitral E Point Velocity 48.4 cm/s Mitral A Point Velocity 85.4 cm/s Mitral E to A Ratio 0.6 LV E' Lateral Velocity 5.5 cm/s Mitral E to LV E' Lateral Ratio 8.9 LV E' Septal Velocity 5.8 cm/s Mitral E to LV E' Septal Ratio 8.4 TR Peak Velocity 273.0 cm/s TR Peak Gradient 29.8 mmHg Right Atrial Pressure 10.0 mmHg Pulmonary Artery Systolic Pressu 39.8 mmHg Right Ventricular Systolic Press 39.8 mmHg PV Peak Velocity 109.0 cm/s PV Peak Gradient 4.8 mmHg FINDINGS LEFT VENTRICLE Normal left ventricular size. Wall thickness is measured at the upper limits of normal. The left ventricular systolic function is low normal with an estimated ejection fraction in the rang e of 50- 55%. RIGHT VENTRICLE Normal right ventricular size and systolic function. LEFT ATRIUM The left atrial size is normal. RIGHT ATRIUM The right atrial size is normal. ATRIAL SEPTUM Normal atrial septal thickness without atrial level shunting by limited color doppler interrogation. AORTA The aortic root and proximal ascending aorta are normal in size on limited imaging. MITRAL VALVE Mild thickening of the mitral valve leaflets. Trace mitral valve regurgitation. AORTIC VALVE Mild thickening of the aortic valve leaflets. TRICUSPID VALVE The estimated pulmonary arterial pressure is 40 mmHg. PULMONARY VALVE No pulmonary valve regurgitation or stenosis. VESSELS The inferior vena cava is normal in size. PERICARDIUM Trivial pericardial effusion. Ross Reynaga MD, FACC (Electronically Signed) Final Date:21 March 2018 16:41
== END 2018-03-21 14:20 | disposition home health service (06) ==
LOC: NEPE 08:29 → NEDA 11:10 → NEDH 15:06 → HCPC 18:07
PROVIDERS: ADMIT Internal Medicine; ATTEND Internal Medicine